=== PATIENT | male | born 1950 | race Caucasian/White ===

== ENCOUNTER 2016-11-04 21:49 | Observation (INO) | payer MEDICARE ==
[~2016-11-04] VITALS: Ht 175.3 cm; Wt 92.6 kg
[~2016-11-04 21:49] MED LIST: ALBU8.5H2 INH; ALBUTEROL; ALPR1TAB7 PO; ALPR1TAB72 PO; ASP81CT PO; ASP81TEC PO; ASPI-999 PO; CLOP75TA PO; CLOP75TA28 PO; CLOP75TA69 PO; CYCL10TA9 PO; DOXY100C2 PO; ESCI10TA48 PO; ESCI10TA55 PO; ESCT10T PO; ESOM10SU; FAMO40TA39 PO; FAMO40TA6; FAMO40TA6 PO; FRSM20T; FRSM40T PO; FURO20TA4 PO; FURO40TA4 PO; HYDR-1231 PO; HYDR-34 PO; HYDR1TAB PO; ISM30TCR PO; ISOS30TA3 PO; ISOSORBIDE; LEXAPRO; LISI20TA; LISINOPRIL; ME-C1TAB; METO25TA2 PO; MULT-974 PO; MULT1CAP27 PO; NF-METANX; NITR0.4T SL; NTR.4SL PO; NTR.4SL SL; OMEG-12 PO; PLAVIX; PROP1TAB2; PROP1TAB77; RANO10003 PO; RANO500T2 PO; SIMV10TA3 PO; SIMV20TA3 PO; SIMV40TA4 PO; TIOT18CA; TIOT18CA INH; XANAX
[2016-11-04 22:03] LABS: BASOPHILS # (AUTO) 0.1 10^3/uL (0.0-0.1); BASOPHILS % (AUTO) 1 % (0-10); EOSINOPHILS # (AUTO) 0.2 10^3/uL (0.0-0.3); EOSINOPHILS % (AUTO) 3 % (0-10); LYMPHOCYTES # (AUTO) 3.4 X 10^3 (1.0-4.0); LYMPHOCYTES % (AUTO) 38 % (12-44); MEAN CORPUSCULAR HEMOGLOBIN 33 PG (25-34); MEAN CORPUSCULAR HGB CONC 35 G/DL (32-36); MEAN CORPUSCULAR VOLUME 95 FL (80-99); MEAN PLATELET VOLUME 8.9 FL (7.4-10.4); MONOCYTES # (AUTO) 0.8 X 10^3 (0.0-1.0); MONOCYTES % (AUTO) 9 % (0-12); NEUTROPHILS # (AUTO) 4.4 X 10^3 (1.8-7.8); NEUTROPHILS % (AUTO) 49 % (42-75); PLATELET COUNT 206 10^3/uL (130-400); RED BLOOD COUNT 4.46 10^6/uL (4.35-5.85); RED CELL DISTRIBUTION WIDTH 13.4 % (10.0-14.5); WHITE BLOOD COUNT 8.9 10^3/uL (4.3-11.0)
[2016-11-04 22:10] LABS: INR 1.1 (0.8-1.4); PROTHROMBIN TIME PATIENT 14.4 SEC (12.2-14.7)
[2016-11-04 22:21] LABS: POTASSIUM 4.3 MMOL/L (3.6-5.0); SODIUM 137 MMOL/L (135-145)
[2016-11-04 22:22] LABS: ALANINE AMINOTRANSFERASE 14 U/L (0-55); AMYLASE 65 U/L (25-125); ANION GAP 9 MMOL/L (5-14); ASPARTATE AMINO TRANSFERASE 17 U/L (5-34); BILIRUBIN,TOTAL 0.3 MG/DL (0.1-1.0); BLOOD UREA NITROGEN 14 MG/DL (7-18); BUN/CREATININE RATIO 10; CARBON DIOXIDE 24 MMOL/L (21-32); CHLORIDE 104 MMOL/L (98-107); CREATINE KINASE 78 U/L (30-200); CREATININE SERUM 1.44 MG/DL (0.60-1.30); GFR ESTIMATED 50; GLUCOSE 103 MG/DL (70-105); LIPASE 25 U/L (8-78); MAGNESIUM 2.3 MG/DL (1.8-2.4); TOTAL PROTEIN 6.9 GM/DL (6.4-8.2)
[2016-11-04 22:28] LABS: TROPONIN I < 0.30 NG/ML (<0.30)
--- NOTE | 2016-11-04 22:36 | ED Chest Pain ---
General Chief Complaint: Chest Pain Stated Complaint: CHEST PAIN Nursing Triage Note: PT BROUGHT TO ED BY [facility]. PT COMPLAINS OF CHEST PAIN AT APPROX. 2030 TODAY. PT STATES HE WAS MAKING TEA IN HIS KITCHEN AND LAST THING HE KNOWS HE WAS ON THE FLOOR. PT HAD 3 NITRO AND 324 ASA AT HOME. PT STATES THE PAIN HAS GONE AWAY SINCE MEDICATIONS WERE TAKING. PT STATES HE FELT DIZZY AT APPROX. 2030 WHEN THE CHEST PAIN STARTED. NO N/V COMPLAINTS. Nursing Sepsis Screen: No Definite Risk Source: patient, EMS History of Present Illness Time seen by provider: 21:46 Initial Comments PT ARRIVES VIA EMS FROM HOME PT STATES HE WAS IN THE KITCHEN AND PASSED OUT/WOKE UP ON THE FLOOR, THEN HAD SEVERE CHEST PAIN RATING 10/10 WHEN HE WOKE UP PT CALLED HIS DAUGHTER, THEN TOOK NTG X 2 AND 325 MG ASPIRIN BEFORE EMS ARRIVED AT SCENE. EMS GAVE HIM NTG X 1 AND 50 MCG FENTANYL PRIOR TO ARRIVAL AND PAIN IS GONE NOW PT WAS DIZZY WHEN HE TRIED TO STAND FOR EMS, AND THINKS HE MIGHT HAVE BEEN DIZZY BEFORE HE PASSED OUT PT DOES NOT RECALL IF HE WAS HAVING ANY CHEST PAIN OR PALPITATIONS OR OTHER SYMPTOMS BEFORE HE PASSED OUT DENIES ANY PAIN OR INJURIES FROM PASSING OUT NO SWEATS NO NAUSEA/VOMITING NO PALPITATIONS NO INCONTINENCE NO SWELLING IN LEGS / FEET OR PAIN IN CALVES. NO RECENT TRAVEL, PROLONGED SITTING, ETC WALKED TODAY WITHOUT PROBLEMS--UNKNOWN DISTANCE. PT HAS HISTORY OF CAD, AND HAS HAD 2 MT'S AND CABG AND MULTIPLE STENTS. LAST CARDIAC CATH 09/2015 AFTER NON-STEMI, BY DR. LOVETT HAS NOT PASSED OUT WITH CHEST PAIN IN THE PAST PCP: DR. MÉNDEZ WINDOW CUTTER: DR. LOVETT Allergies and Home Medications Allergies Coded Allergies: morphine (Unverified Adverse Reaction, Unknown, "MAKES ME CRAZY", 09/04/13) Home Medications Aspirin 81 Mg Chew, 81 MG PO Q48H, (Reported) Aspirin 81 Mg Tab.chew, 81 MG PO Q48H, #100 Ref 4 Prescribed by: GAIL LOVETT on 09/27/15 0948 Clopidogrel Bisulfate 75 Mg Tablet, 75 MG PO DAILY, (Reported) Escitalopram Oxalate 10 Mg Tablet, 10 MG PO HS, (Reported) Famotidine 40 Mg Tablet, 40 MG PO, (Reported) Furosemide 40 Mg Tablet, 40 MG PO, (Reported) Isosorbide Mononitrate 30 Mg Tab.er.24h, 30 MG PO, (Reported) Meloxicam 15 Mg Tablet, 15 MG PO, (Reported) Metoprolol Tartrate 25 Mg Tablet, 25 MG PO BID, (Reported) Nitroglycerin 0.4 Mg Tab, SL UD PRN for CHEST PAIN, (Reported) 1 TABLET EVERY 5 MINUTES X 3 DOSES NEEDED FOR CHEST PAIN Nitroglycerin 0.4 Mg Tab.subl, 0.4 MG SL PRN PRN for CHEST PAIN, #30 Ref 4 Prescribed by: GAIL LOVETT on 09/27/15 0948 Ranolazine 1,000 Mg Tab.er.12h, 1,000 MG PO BID, (Reported) Ranolazine 1,000 Mg Tab.er.12h, 1,000 MG PO, (Reported) Simvastatin 20 Mg Tablet, 20 MG PO HS, (Reported) Review of Systems Constitutional: see HPI, No diaphoresis, dizziness EENTM: No Symptoms Reported Respiratory: No Symptoms Reported Cardiovascular: See HPI, Chest Pain, Denies Edema, Lightheadedness, Denies Palpitations, Syncope Gastrointestinal: No Symptoms Reported Genitourinary: No Symptoms Reported Musculoskeletal: no symptoms reported Skin: no symptoms reported Psychiatric/Neurological: See HPI (SYNCOPE), Denies Headache, Denies Numbness, Denies Paresthesia Endocrine: No Symptoms Reported Hematologic/Lymphatic: No Symptoms Reported Past Gajjypn-Ptthed-Lukcvt Hx Patient Social History Alcohol Use: Past History ("NONE FOR YEARS" PER PT ON 11/04/16) Recreational Drug Use: Yes (" A TEENAGER"--DOES NOT STATE WHAT KIND, PER PT ON 11/04/16) Smoking Status: Current Everyday Smoker (1-2 PPD) Type Used: Cigarettes 2nd Hand Smoke Exposure: Yes Recent Foreign Travel: No Contact w/Someone Who Travel: No Recent Infectious Disease Expo: No Recent Hopitalizations: No Physical Abuse: No Sexual Abuse: No Immunizations Up To Date Tetanus Booster (TDap): Less than 5yrs PED Vaccines UTD: No Date of Pneumonia Vaccine: Oct 31, 2008 Date of Influenza Vaccine: Nov 23, 2011 Seasonal Allergies Seasonal Allergies: No Surgeries History of Surgeries: Yes (CARDIAC CATHS AND MULTIPLE STENTS--LAST CATH 2015 WITH NO INTERVENTION AT THAT TIME; ) Surgeries: CABG, Coronary Stent, Orthopedic Respiratory History of Respiratory Disorde: Yes Respiratory Disorders: COPD Currently Using CPAP: No Currently Using BIPAP: No Cardiovascular History of Cardiac Disorders: Yes (CATHS, BYPASS, STENTS, BALLOONS, LAST MT-- NON-STEMI 09/2015) Cardiac Disorders: Coronary Artery Disease, Heart Attack, High Cholesterol, Hypertension Neurological History of Neurological Disord: Yes (hx of brain bleed) Neurological Disorders: Traumatic Brain Injury Reproductive System Hx Reproductive Disorders: No Sexually Transmitted Disease: No HIV/AIDS: No Genitourinary History of Genitourinary Disor: Yes Genitourinary Disorders: Benign Prostatic Hyperpl Gastrointestinal History of Gastrointestinal Di: Yes Gastrointestinal Disorders: Gastroesophageal Reflux Musculoskeletal History of Musculoskeletal Dis: Yes Musculoskeletal Disorders: Chronic Back Pain Endocrine History of Endocrine Disorders: Yes ("DIET CONROLLED" ) Endocrine Disorders: Diabetes, Non-Insulin dep Cancer History of Cancer: No Psychosocial History of Psychiatric Problem: Yes Behavioral Health Disorders: Anxiety, Depression Suicide Risk Score: 0 Integumentary History of Skin or Integumenta: No Blood Transfusions History of Blood Disorders: No Adverse Reaction to a Blood Tr: No Family Medical History Significant Family History: No Pertinent Family Hx Family Medial History: Completed stroke 19 FATHER Diabetes mellitus 19 FATHER 19 MOTHER Myocardial infarction 19 MOTHER Physical Exam Vital Signs Vital Sign - Last 12Hours Capillary Refill : Less Than 3 Seconds General Appearance: No Apparent Distress, WD/WN, Other (REEKS OF CIGARETTE SMOKE) HEENT: PERRL/EOMI, Other (EDENTULOUS. NO EXTERNAL EVIDENCE OF TRAUMA TO HEAD) Neck: Full Range of Motion, Normal Inspection, Non Tender, Supple Respiratory: Chest Non Tender, Normal Breath Sounds, No Accessory Muscle Use, No Respiratory Distress Cardiovascular: Regular Rate, Rhythm, No Edema, No JVD, No Murmur, Normal Peripheral Pulses (+1/4 BILATERALLY) Gastrointestinal: Normal Bowel Sounds, No Organomegaly, No Pulsatile Mass, Non Tender, Soft Extremity: Normal Capillary Refill, Normal Inspection, Normal Range of Motion, Non Tender, No Calf Tenderness, No Pedal Edema Neurologic/Psychiatric: Alert, Oriented x3, No Motor/Sensory Deficits, Normal Mood/Affect, apparel embroidery digitizer II-XII Norm as Tested Skin: Normal Color, Warm/Dry, Tattoos/Piercings (TATTOOS), Other (NO EXTERNAL EVIDENCE OF TRAUMA ANYWHERE) Progress/Results/Core Measures Results/Orders Lab Results Laboratory Tests Test 11/04/16 21:51 Range/Units White Blood Count 8.9 4.3-11.0 10^3/uL Red Blood Count 4.46 4.35-5.85 10^6/uL Hemoglobin 14.7 13.3-17.7 G/DL Hematocrit 42 40-54 % Mean Corpuscular Volume 95 80-99 FL Mean Corpuscular Hemoglobin 33 25-34 PG Mean Corpuscular Hemoglobin Concent 35 32-36 G/DL Red Cell Distribution Width 13.4 10.0-14.5 % Platelet Count 206 130-400 10^3/uL Mean Platelet Volume 8.9 7.4-10.4 FL Neutrophils (%) (Auto) 49 42-75 % Lymphocytes (%) (Auto) 38 12-44 % Monocytes (%) (Auto) 9 0-12 % Eosinophils (%) (Auto) 3 0-10 % Basophils (%) (Auto) 1 0-10 % Neutrophils # (Auto) 4.4 1.8-7.8 X 10^3 Lymphocytes # (Auto) 3.4 1.0-4.0 X 10^3 Monocytes # (Auto) 0.8 0.0-1.0 X 10^3 Eosinophils # (Auto) 0.2 0.0-0.3 10^3/uL Basophils # (Auto) 0.1 0.0-0.1 10^3/uL Prothrombin Time 14.4 12.2-14.7 SEC INR Comment 1.1 0.8-1.4 Activated Partial Thromboplast Time 27 24-35 SEC Sodium Level 137 135-145 MMOL/L Potassium Level 4.3 3.6-5.0 MMOL/L Chloride Level 104 98-107 MMOL/L Carbon Dioxide Level 24 21-32 MMOL/L Anion Gap 9 5-14 MMOL/L Blood Urea Nitrogen 14 7-18 MG/DL Creatinine 1.44 H 0.60-1.30 MG/DL Estimat Glomerular Filtration Rate 50 BUN/Creatinine Ratio 10 Glucose Level 103 70-105 MG/DL Calcium Level 9.0 8.5-10.1 MG/DL Magnesium Level 2.3 1.8-2.4 MG/DL Total Bilirubin 0.3 0.1-1.0 MG/DL Aspartate Amino Transf (AST/SGOT) 17 5-34 U/L Alanine Aminotransferase (ALT/SGPT) 14 0-55 U/L Alkaline Phosphatase 83 40-136 U/L Total Creatine Kinase 78 30-200 U/L Creatine Kinase MB 1.1 <6.6 NG/ML Troponin I < 0.30 <0.30 NG/ML B-Type Natriuretic Peptide 27.4 <100.0 PG/ML Total Protein 6.9 6.4-8.2 GM/DL Albumin 4.0 3.2-4.5 GM/DL Amylase Level 65 25-125 U/L Lipase 25 8-78 U/L My Orders Orders - KRAEN SOLIS DO Amylase (11/04/16 21:58) Cbc With Automated Diff (11/04/16 21:58) Comprehensive Metabolic Panel (11/04/16 21:58) Creatine Kinase (11/04/16 21:58) Creatine Kinase Mb (11/04/16 21:58) Lipase (11/04/16 21:58) Partial Thromboplastin Time (11/04/16 21:58) Protime With Inr (11/04/16 21:58) Troponin I (11/04/16 21:58) Chest 1 View, Ap/Pa Only (11/04/16 21:58) O2 (11/04/16 21:58) Ekg Tracing (11/04/16 21:58) BNP (11/04/16 21:58) Monitor-Rhythm Ecg Trace Only (11/04/16 21:58) Magnesium (11/04/16 21:58) Vital Signs/I&O Vital Sign - Last 12Hours 11/04/16 11/04/16 21:49 21:49 Temp 97.9 Pulse 81 Resp 14 B/P (MAP) 145/81 Pulse Ox 96 O2 Delivery Room Air Room Air Blood Pressure Mean: 102 Progress Note : Progress Note UNEVENTFUL ER STAY NO CHEST PAIN OR ANY OTHER SYMPTOMS DURING ER STAY PT RESTED QUIETLY FOR ENTIRE ER STAY ECG Initial ECG Impression Time: 21:49 Initial ECG Rate: 82 Initial ECG Rhythm: Normal Sinus Initial ECG Comparisson: Unchanged Diagnostic Imaging Comments CXR--NO ACUTE PROCESS, PENDING RADIOLOGIST REVIEW CT HEAD--NO ACUTE PROCESS, PER [facility] VIA FAX @ [phone] Reviewed: Reviewed by Me Departure Communication (Admissions) Progress Notes 2204--SPOKE WITH DR. JACK, WINDOW CUTTER MEAT GRINDER FOR CONSULT [id number]--SPOKE WITH DR. SÁNCHEZ, HOSPITALIST MEAT GRINDER, ACCEPTS PT FOR ADMIT Impression Impression: Primary Impression: SYNCOPAL EPISODE WITH CHEST PAIN Additional Impressions: HX OF CAD NIDDM HTN (hypertension) Smoker COPD (chronic obstructive pulmonary disease) Disposition: ADMITTED INPATIENT Condition: Improved Admissions Decision to Admit Reason: Admit from ER (General) Decision to Admit/Date: Nov 04, 2016 Time/Decision to Admit Time: 22:05 Departure-Patient Inst. Referrals: AMADEO MÉNDEZ MD (PCP/Family) Primary Care Physician KAREN SOLIS DO Nov 04, 2016 22:36
[2016-11-04] MEDS ORDERED: FAMO40TA6 PO (22:49)
[2016-11-04] MEDS ORDERED: FURO40TA4 PO (22:50)
[2016-11-04] MEDS ORDERED: ISOS30TA3 PO (22:51)
[2016-11-04] MEDS ORDERED: MELO15TA39 PO (22:51)
[2016-11-04] MEDS ORDERED: METO-333 PO (22:52)
[2016-11-04] MEDS ORDERED: RANO10003 PO (22:53)
[2016-11-05] VITALS (13 sets, daily range): BP systolic 107–142; BP diastolic 71–99
[2016-11-05] MEDS ORDERED: NITROGLYCERIN 0.4 MG SL TABS BTL 25'S SL PRN ×2 (01:15→12:45)
[2016-11-05] MEDS ORDERED: fentaNYL INJECTION 100 MCG/2 ML AMP IV PRN (01:15)
[2016-11-05] MEDS: NS IV 1000 ML 1,000 ML IV SCH ×2 (01:20→19:42)
[2016-11-05] MEDS ORDERED: NICOTINE 21 MG (NICODERM) PATCH ONE (01:49)
[2016-11-05] MEDS: NICOTINE 21 MG (NICODERM) PATCH TD SCH ×2 (02:14→09:29)
[2016-11-05 04:23] LABS: BASOPHILS # (AUTO) 0.1 10^3/uL (0.0-0.1); BASOPHILS % (AUTO) 1 % (0-10); EOSINOPHILS # (AUTO) 0.3 10^3/uL (0.0-0.3); EOSINOPHILS % (AUTO) 3 % (0-10); LYMPHOCYTES # (AUTO) 3.2 X 10^3 (1.0-4.0); LYMPHOCYTES % (AUTO) 43 % (12-44); MEAN CORPUSCULAR HEMOGLOBIN 33 PG (25-34); MEAN CORPUSCULAR HGB CONC 35 G/DL (32-36); MEAN CORPUSCULAR VOLUME 95 FL (80-99); MEAN PLATELET VOLUME 9.3 FL (7.4-10.4); MONOCYTES # (AUTO) 0.8 X 10^3 (0.0-1.0); MONOCYTES % (AUTO) 11 % (0-12); NEUTROPHILS # (AUTO) 3.1 X 10^3 (1.8-7.8); NEUTROPHILS % (AUTO) 42 % (42-75); PLATELET COUNT 185 10^3/uL (130-400); RED BLOOD COUNT 4.39 10^6/uL (4.35-5.85); RED CELL DISTRIBUTION WIDTH 13.5 % (10.0-14.5); WHITE BLOOD COUNT 7.5 10^3/uL (4.3-11.0)
[2016-11-05 04:45] LABS: ALANINE AMINOTRANSFERASE 13 U/L (0-55); ALBUMIN 3.7 GM/DL (3.2-4.5); ANION GAP 9 MMOL/L (5-14); ASPARTATE AMINO TRANSFERASE 17 U/L (5-34); BILIRUBIN,TOTAL 0.4 MG/DL (0.1-1.0); BLOOD UREA NITROGEN 14 MG/DL (7-18); BUN/CREATININE RATIO 12; CALCIUM 8.8 MG/DL (8.5-10.1); CARBON DIOXIDE 23 MMOL/L (21-32); CHLORIDE 106 MMOL/L (98-107); CREATININE SERUM 1.19 MG/DL (0.60-1.30); GFR ESTIMATED > 60; GLUCOSE 92 MG/DL (70-105); POTASSIUM 4.2 MMOL/L (3.6-5.0); SODIUM 138 MMOL/L (135-145); TOTAL PROTEIN 6.5 GM/DL (6.4-8.2)
[2016-11-05 04:57] LABS: MYOGLOBIN SERUM 45.8 NG/ML (10.0-92.0)
[2016-11-05] MEDS: inSUlin (REGULAR) HUMAN 1 UNIT/0.01 ML (CHARGE PER UNIT) SC SCH ×2 (06:24→13:17)
[2016-11-05 06:39] LABS: BILIRUBIN,URINE NEGATIVE (NEGATIVE); KETONES,URINE NEGATIVE (NEGATIVE); LEUKOCYTE ESTERASE ,URINE NEGATIVE (NEGATIVE); NITRITE,URINE NEGATIVE (NEGATIVE); PH,URINE 6 (5-9); PROTEIN,URINE NEGATIVE (NEGATIVE); UROBILINOGEN,URINE NORMAL (NORMAL)
[2016-11-05 06:47] LABS: SQUAMOUS EPITHELIAL CELL,UR RARE /HPF
--- NOTE | 2016-11-05 07:42 | Diagnostic Imaging Report ---
INDICATION: Dizziness and syncope. Noncontrast brain CT is performed. FINDINGS: There were no extra-axial fluid collections. No intracranial hemorrhage. No intracranial mass or mass effect. No midline shift. The ventricles are normal in size and position. There were no focal parenchymal abnormalities in the brain. IMPRESSION: Negative noncontrast brain CT. Dictated by: Dictated on workstation # [id number]
--- NOTE | 2016-11-05 07:48 | Diagnostic Imaging Report ---
INDICATION: Chest pain. Frontal chest obtained at 10:08 p.m. and compared to 09/26/15. FINDINGS: There is poststernotomy change with cardiomegaly. There is no focal infiltrate or pneumothorax or pleural fluid. There is an old right clavicle fracture. IMPRESSION: Cardiomegaly and poststernotomy change. No focal infiltrate or pneumothorax or pleural fluid. Dictated by: Dictated on workstation # [id number]
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
[2016-11-05] MEDS ORDERED: CLOPIDOGREL 75 MG (PLAVIX) TABLET PO ONE (08:30)
[2016-11-05] MEDS ORDERED: ATOR40TA70 PO (08:57)
[2016-11-05] MEDS ORDERED: NITR0.4T39 SL (08:57)
[2016-11-05] MEDS ORDERED: ALPR1TAB7 PO (08:57)
[2016-11-05] MEDS ORDERED: TIOT18CA2 INH (08:57)
[2016-11-05] MEDS ORDERED: ASPI-999 PO (08:57)
[2016-11-05] MEDS ORDERED: RT-ALBUINH INH (08:57)
[2016-11-05] MEDS ORDERED: RANOLAZINE ER 500 MG TAB (RANEXA) PO SCH ×2 (09:00→21:00)
[2016-11-05] MEDS ORDERED: ASPIRIN E.C. 325 MG (ECOTRIN) TABLET PO SCH (09:00)
[2016-11-05] MEDS ORDERED: ASPIRIN 81 MG CHEW (CHILDREN'S ASA) PO SCH (09:00)
[2016-11-05] MEDS ORDERED: CLOPIDOGREL 75 MG (PLAVIX) TABLET PO SCH (09:00)
[2016-11-05] MEDS ORDERED: NICOTINE PATCH REMOVAL TP SCH (09:00)
--- NOTE | 2016-11-05 12:16 | Short Stay Summary-Hospitalist ---
HPI History of Present Illness: HPI/Chief Complaint CC: Chest pain with syncope HPI: This is a 65 [address] Paul who presented with chest pain with syncope Dr. 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 Moore today Pt confirms PCP as Dr. Paul and Conservation Planner as Dr. Sanches Pt denies passing out and chest pain since admission Physical exam stable. 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 Pt joked that he needs something to eat, drink, and smoke. Scribed by Sarahi Sam under the direct supervision of Dr. Sánchez. Source: patient Exam Limitations: no limitations Date Seen 11/05/16 Time Seen by Provider: 10:30 Attending Physician Consuelo Sánchez DO PCP Estevan Paul MD Referring Physician Date of Admission Nov 04, 2016 at 22:05 Home Medications & Allergies Home Medications Reviewed patient Home Medication Reconciliation Form Allergies Allergies Coded Allergies morphine (Unverified Adverse Reaction, Unknown, "MAKES ME CRAZY", 09/04/13) Past Hbpcscc-Ymauvr-Mebusl Hx Patient Social History Employed/Student: retired Alcohol Use: Past History Recreational Drug Use: Yes (" A TEENAGER"--DOES NOT STATE WHAT KIND, PER PT ON 11/04/16) Smoking Status: Current Everyday Smoker Type Used: Cigarettes 2nd Hand Smoke Exposure: Yes Physical Abuse Screen: No Sexual Abuse: No Recent Foreign Travel: No Contact w/other who traveled: No Recent Hopitalizations: No Recent Infectious Disease Expo: No Immunizations Up To Date Tetanus Booster (TDap): Less than 5yrs Pediatric: Yes Date of Pneumonia Vaccine: Oct 31, 2008 Date of Influenza Vaccine: Nov 23, 2011 Seasonal Allergies Seasonal Allergies: No Surgeries Yes (CARDIAC SX, PINS IN R. WRIST, KNEE SURGERGY) CABG, Coronary Stent, Orthopedic Respiratory Yes COPD Currently Using CPAP: No Currently Using BIPAP: No Cardiovascular Yes (CATHS, BYPASS, STENTS, BALLOONS, LAST [place]--NON-STEMI 09/2015) Coronary Artery Disease, Heart Attack, High Cholesterol, Hypertension Neurological Yes (hx of brain bleed) Traumatic Brain Injury Reproductive System Hx Reproductive Disorders: No Sexually Transmitted Disease: No HIV/AIDS: No Genitourinary Yes Benign Prostatic Hyperpl Gastrointestinal Yes Gastroesophageal Reflux Musculoskeletal Yes Chronic Back Pain Endocrine History of Endocrine Disorders: Yes ("DIET CONROLLED" ) Endocrine Disorders: Diabetes, Non-Insulin dep HEENT History of HEENT Disorders: No Hearing Impairment: Denies Cancer No Psychosocial History of Psychiatric Problem: Yes Behavioral Health Disorders: Anxiety, Depression Integumentary History of Skin or Integumenta: No Blood Transfusions History of Blood Disorders: No Adverse Reaction to a Blood Tr: No Family Medical History Significant Family History: No Pertinent Family Hx Family Hx: Completed stroke 19 FATHER Diabetes mellitus 19 FATHER 19 MOTHER Myocardial infarction 19 MOTHER Review of Systems Constitutional: see HPI EENTM: no symptoms reported Respiratory: no symptoms reported Cardiovascular: chest pain Gastrointestinal: no symptoms reported Genitourinary: no symptoms reported Musculoskeletal: no symptoms reported Skin: no symptoms reported Psychiatric/Neurological: Other (syncope) Physical Exam Physical Exam Vital Signs Vital Sign - Last 12Hours 11/05/16 02:15 O2 Flow Rate 2.00 Capillary Refill : Less Than 3 Seconds General Appearance: No Apparent Distress, WD/WN, Chronically ill Eyes: Bilateral Eye Normal Inspection, Bilateral Eye PERRL HEENT: PERRL/EOMI, Normal ENT Inspection, Pharynx Normal Neck: Full Range of Motion, Normal Inspection, Non Tender, Supple, Carotid Bruit Respiratory: Chest Non Tender, Lungs Clear, Normal Breath Sounds, No Accessory Muscle Use, No Respiratory Distress Cardiovascular: Regular Rate, Rhythm, No Edema, No Gallop, No JVD, No Murmur, Normal Peripheral Pulses Gastrointestinal: Normal Bowel Sounds, No Organomegaly, No Pulsatile Mass, Non Tender, Soft Back: Normal Inspection, No CVA Tenderness, No Vertebral Tenderness Extremity: Normal Capillary Refill, Normal Inspection, Normal Range of Motion, Non Tender, No Calf Tenderness, No Pedal Edema Neurologic/Psychiatric: Alert, Oriented x3, No Motor/Sensory Deficits, Normal Mood/Affect Skin: Normal Color, Warm/Dry Lymphatic: No Adenopathy Results Results/Procedures Lab Laboratory Tests 11/04/16 21:51 11/05/16 03:48 Short Stay Diagnosis Discharge Diagnosis-Short Stay Admission Diagnosis Assessment: Chest pain of uncertain source accompanied with syncope Smoker CAD COPD HLP Anxiety Final Discharge Diagnosis Assessment: Chest pain of uncertain source Smoker CAD COPD HLP Anxiety Conclusion Plan Plan: Stress test Monitor pt in meantime DC per Cardiology Clinical Quality Measures AMI/AHF: ASA po Prior to arrival: Yes DVT/VTE Risk/Contraindication: Risk Factor Score Per Nursin RFS Level Per Nursing on Admit: 4+=Very High CONSUELO SÁNCHEZ DO Nov 05, 2016 12:16
[2016-11-05] MEDS ORDERED: ALPRAZolam 1 MG (XANAX) TAB PO PRN (12:45)
[2016-11-05] MEDS ORDERED: FUROSEMIDE 40 MG (LASIX) TAB PO PRN (12:45)
[2016-11-05] MEDS ORDERED: RT-ALBUTEROL SULF 2.5 MG/3 ML PRE-MIX VIAL IH PRN (13:00)
[2016-11-05] MEDS ORDERED: REGADENOSON 0.4 MG/5 ML SYR (LEXISCAN) IV ONE ×2 (13:23→13:45)
[2016-11-05] MEDS ORDERED: ISOSORBIDE MONONITRATE 30 MG (IMDUR) TAB PO SCH (21:00)
[2016-11-05] MEDS ORDERED: ATORVASTATIN 40 MG (LIPITOR) TABLET PO SCH ×2 (21:00)
[2016-11-05] MEDS ORDERED: meTOprolol TARTRATE 25 MG (LOPRESSOR) TABLET PO SCH (21:00)
[2016-11-06] MEDS ORDERED: UMECLIDINIUM BROMIDE (INCRUSE ELLIPTA) 7'S IH SCH (08:00)
[2016-11-06] MEDS ORDERED: FAMOTIDINE 20 MG (PEPCID) TABLET PO SCH (09:00)
[2016-11-06] MEDS ORDERED: ASPIRIN 81 MG CHEW (CHILDREN'S ASA) PO SCH (09:00)
[2016-11-06] MEDS ORDERED: MELOXICAM 7.5 MG (MOBIC) TABLET PO SCH (09:00)
[2016-11-06] MEDS ORDERED: CLOPIDOGREL 75 MG (PLAVIX) TABLET PO SCH (09:00)
--- NOTE | 2016-11-06 22:08 | STRESS TEST ---
DATE OF SERVICE: 11/05/2016 RESTING AND POST REGADENOSON TECHNETIUM-99M TETROFOSMIN SPECT CT IMAGING ORDERING PHYSICIAN: Dr. Moore. PRIMARY CARE PHYSICIAN: Dr. Puri. OTHER PHYSICIAN: Dr. Mann, Dr. Paul. CLINICAL DIAGNOSES: Syncope, coronary artery disease. Baseline images were carried out after injection of 10.76 mCi of technetium-99M tetrofosmin. This was followed by 0.4 mg regadenoson and 31.9 mCi of technetium-99M tetrofosmin for stress imaging. The electrocardiogram showed sinus rhythm at baseline. It did not change significantly with the regadenoson infusion. Overall, he tolerated the procedure fairly well. Review of images at rest and following stress does not indicate any distinct perfusion defects consistent with significant myocardial ischemia or infarction. Gated images show normal global left ventricular systolic function with normal regional wall motion. Left ventricular ejection fraction is calculated to be 49%, but appears to be subjectively higher than that. There is no evidence of transient ischemic dilatation. CONCLUSION: 1. No evidence of significant myocardial ischemia or infarction on this study. 2. Normal regional wall motion. 3. Normal global left ventricular systolic function. Left ventricular ejection fraction is calculated to be 49% but, subjectively, it appears to be higher than that. Job ID: [id number] DocumentID: [id number] Dictated Date: 11/05/2016 16:35:18 Mobile Home Lot Utility Worker Date: 11/05/2016 21:19:45 Dictated By: SURESH MOORE MD, MA, FACP, FACC, MTDD
== END 2016-11-05 17:30 | disposition left against medical advice (07) ==
LOC: EDUNIT# 21:49 → ER 21:50 → ICU 22:05
PROVIDERS: ADMIT Internal Medicine; ATTEND Internal Medicine
DX: R07.9 Chest pain, unspecified (principal); R55 Syncope and collapse; I25.10 Atherosclerotic heart disease of native coronary artery without angina pectoris; E11.9 Type 2 diabetes mellitus without complications; I10 Essential (primary) hypertension; J44.9 Chronic obstructive pulmonary disease, unspecified; E78.5 Hyperlipidemia, unspecified; F41.9 Anxiety disorder, unspecified; N40.0 Benign prostatic hyperplasia without lower urinary tract symptoms; F17.210 Nicotine dependence, cigarettes, uncomplicated; Z79.82 Long term (current) use of aspirin; Z79.899 Other long term (current) drug therapy; Z95.1 Presence of aortocoronary bypass graft; Z95.5 Presence of coronary angioplasty implant and graft
CPT/HCPCS: 36415; 70450; 71010; 78452; 80053; 81000; 82150; 82550; 82553; 82962; 83690; 83735; 83874; 83880; 84484; 85025; 85610; 85730; 93005; 93017; 93041; 93306; 96365

== ENCOUNTER → 2022-01-02 | Outpatient (CLI) | payer MEDICARE ==
[~2022-01-02] MED LIST changes: +ALBU8.5H6 INH; +ATOR40TA70 PO; +CATHETER FLUSH 10 ML SYR IV PRN; +ESCI-2 PO; -ESCI10TA55 PO; +HOLD METFORMIN - RECEIVED CONTRAST 20 ML VIAL IV SCH; +IOHEXOL 350 MG/ML 100 ML (OMNIPAQUE 350) VIAL IV ONE; +ISOS30TA82 PO; +MELO15TA39 PO; +METO-333 PO; +NITR0.4T39 SL; +NS 100 ML (IVPB) BAG IV ONE; +SIMV20TA26 PO; -SIMV20TA3 PO; +TIOT18CA2 INH
--- NOTE | 2022-01-02 11:50 | Diagnostic Imaging Report ---
Indication: 71-year-old male with carotid bifurcation disease Comparisons: CT head 11/04/2016 FINDINGS: There is a normal arch origin of great vessels. Both common carotid arteries are widely patent. Carotid bifurcations show some minimal mixed plaque but no evidence of hemodynamically significant stenosis. The cervical, high cervical and petrous segments are widely patent. There is bilateral carotid siphon disease with calcific atherosclerosis. No evidence of hemodynamically significant stenosis seen. The vertebral arteries are codominant and are widely patent to the skull base. The left V3 and V4 segment are dominant compared to the right. Both PICA, basilar artery, AICA and the visualized SCA are unremarkable. Lung apices are clear. Superior mediastinum is unremarkable. Parapharyngeal and paraspinous soft tissues are also unremarkable. A few shotty benign-appearing cervical nodes. There is metallic artifacts seen near the left parotid gland most likely associated with previous surgery. IMPRESSION: 1. There is bilateral carotid bifurcation disease with mixed plaque but no evidence of hemodynamically significant stenosis. 2. There is bilateral carotid siphon disease with calcific atherosclerosis with some mild narrowing but this is not felt to be hemodynamically significant. 3. The vertebral arteries are codominant at the skull base. No areas of hemodynamically significant stenosis seen. The visualized intracranial circulation is unremarkable. Additional nonemergent findings as described. Dictated on workstation # [id number]
== END ==
LOC: CARD 09:06
PROVIDERS: ATTEND Internal Medicine Cardiovascular Disease
DX: I65.23 Occlusion and stenosis of bilateral carotid arteries (principal); I10 Essential (primary) hypertension
CPT/HCPCS: 70498; C8929; 93306

== ENCOUNTER → 2022-01-28 | Outpatient (CLI) | payer MEDICARE ==
[~2022-01-28] VITALS: Ht 175 cm; Wt 94.0 kg
[~2022-01-28] MED LIST changes: -CATHETER FLUSH 10 ML SYR IV PRN; +CATHETER FLUSH 10 ML SYR IVP PRN; +CLOP-31 PO; -CLOP75TA69 PO; -HOLD METFORMIN - RECEIVED CONTRAST 20 ML VIAL IV SCH; -IOHEXOL 350 MG/ML 100 ML (OMNIPAQUE 350) VIAL IV ONE; -NS 100 ML (IVPB) BAG IV ONE; +REGADENOSON 0.4 MG/5 ML SYR (LEXISCAN) IV ONE
[2022-01-28 09:46] VITALS: BP 139/72
[2022-01-28 09:51] VITALS: BP 129/79
[2022-01-28 09:53] VITALS: BP 125/79
--- NOTE | 2022-01-28 14:14 | Cardiology Stress Test Report ---
Stress Test Report Date of Procedure/Referring: Date of Procedure: Jan 28, 2022 PCP Estevan Paul MD Admitting Physician Admitting Physician: Attending Physician: Gail Sanches MD Indications: CAD Baseline Heart Rate: 97 Baseline Blood Pressure: Blood Pressure Systolic: 125 Blood Pressure Diastolic: 79 Baseline Vitals Vital Signs Date Time Temp Pulse Resp B/P (MAP) Pulse Ox O2 Delivery O2 Flow Rate FiO2 01/28/22 09:46 94 17 139/72 (94) 96 Room Air Baseline EKG: Baseline EKG: NSR Summary After explaining the procedure to the patient, he signed a consent and then brought to the stress nuclear laboratory. Patient received 0.4 mg Lexiscan for stress test, ECG, heart rate and blood pressure were monitored continuously. Resting and stress dose of radio tracer were injected, imaging was acquired and reviewed in short axis, horizontal long axis and vertical long axis views. TID: 1.05 SSS: 5 SDS: 1 EF: 38 1. Patient tolerated Lexiscan well 2. Diaphragmatic attenuation with fixed defect involving the inferior wall and inferoapical segment 3. Prominent left ventricle with diffuse left ventricular hypokinesia with ejection fraction 38% GAIL SANCHES MD Jan 28, 2022 14:14
== END ==
LOC: CARD 08:30
PROVIDERS: ATTEND Internal Medicine Cardiovascular Disease
DX: I11.9 Hypertensive heart disease without heart failure (principal); J98.6 Disorders of diaphragm; I25.10 Atherosclerotic heart disease of native coronary artery without angina pectoris
CPT/HCPCS: 78452; 93017

== ENCOUNTER 2022-02-11 09:00 | Day surgery (SDC) | payer MEDICARE ==
[2022-02-11] VITALS (10 sets, daily range): BP systolic 124–147; BP diastolic 64–82
[~2022-02-11] VITALS: Ht 175.3 cm; Wt 93.6 kg
[2022-02-11 07:45] LABS: HEMATOCRIT 41 % (40-54); HEMOGLOBIN 13.8 g/dL (13.3-17.7); MEAN CORPUSCULAR HEMOGLOBIN 31 pg (25-34); MEAN CORPUSCULAR HGB CONC 34 g/dL (32-36); MEAN CORPUSCULAR VOLUME 93 fL (80-99); MEAN PLATELET VOLUME 9.2 fL (9.0-12.2); PLATELET COUNT 144 10^3/uL (130-400); WHITE BLOOD COUNT 8.8 10^3/uL (4.3-11.0)
[2022-02-11 07:46] LABS: BILIRUBIN,URINE NEGATIVE (NEGATIVE); CLARITY,URINE CLEAR; COLOR,URINE YELLOW; GLUCOSE, URINE (UA) NEGATIVE (NEGATIVE); KETONES,URINE NEGATIVE (NEGATIVE); LEUKOCYTE ESTERASE ,URINE NEGATIVE (NEGATIVE); NITRITE,URINE NEGATIVE (NEGATIVE); PROTEIN,URINE 1+ (NEGATIVE)
[2022-02-11 07:55] LABS: BACTERIA,URINE NEGATIVE /HPF
[2022-02-11 08:02] LABS: ALBUMIN 3.7 GM/DL (3.2-4.5); POTASSIUM 4.1 MMOL/L (3.6-5.0)
--- NOTE | 2022-02-11 08:02 | Diagnostic Imaging Report ---
INDICATION: abn stress cp cad htn tobaccoism COMPARISON: 11/04/2016 FINDINGS: Single frontal view of the chest demonstrates mild cardiomegaly. Pulmonary vasculature is within normal limits. Left-sided dual-lead pacemaker and sternotomy wires are noted. The lungs are well aerated and clear. No large pleural effusion or pneumothorax is seen. The visualized osseous structures show no acute abnormalities. IMPRESSION: 1. Mild cardiomegaly, but no evidence of failure or focal infiltrate. Dictated by: Dictated on workstation # [id number]
[2022-02-11 08:03] LABS: INR 1.1 (0.8-1.4); PROTHROMBIN TIME PATIENT 14.8 SEC (12.2-14.7)
[2022-02-11 08:06] LABS: BILIRUBIN,TOTAL 0.6 MG/DL (0.1-1.0)
[2022-02-11 08:08] LABS: CREATININE SERUM 1.54 MG/DL (0.60-1.30)
--- NOTE | 2022-02-11 08:35 | Cardiac Procedure Note-CS/ASA ---
Pre-Procedure Note Pre-Op Procedure Note Date of Available H&P: Jan 29, 2022 Date H&P Reviewed: Feb 11, 2022 Time H&P Reviewed: 08:35 History & Physical: H&P Reviewed, Patient Examed, No changes noted Pre-Operative Diagnosis: CAD Conscious Sedation Pre-Proced Time 08:35 ASA Score 3 For ASA 3 and 4: Consider anesthesia and medical clearance. Also, for patients with a history of failed moderate sedation consider anesthesia. Airway Lungs Heart ASA score ASA 1: a normal healthy patient ASA 2: a patient with a mild systemic disease (mid diabetes, controlled hypertension, obesity ASA 3: a patient with a severe systemic disease that limits activity (angina, COPD, prior Myocardial infarction) ASA 4: a patient with an incapacitating disease that is a constant threat to life (CHF, renal failure) ASA 5: a moribund patient not expected to survive 24 hrs. (ruptured aneurysm) ASA 6: a declared brain- patient whose organs are being harvested. For emergent operations, add the letter E after the classification Mallampati Classification Grade 3 Sedation Plan Analgesia, Amnesia, Plan communicated to team members, Discussed options with patient/fam, Discussed risks with patient/fam The patient is an appropriate candidate to undergo the planned procedure, sedation, and anesthesia. The patient immediately re-assessed prior to indication. GAIL LOVETT MD Feb 11, 2022 08:35
[~2022-02-11 09:00] MED LIST changes: +AMIO200T65 PO; +APIX5TAB PO; +ATOR80TA76 PO; -CATHETER FLUSH 10 ML SYR IVP PRN; +EZET10TA49 PO; +HEParin (CATH LAB) 2,000 ML IV ONE; +LIDOCAINE 1% INJ 30 ML (XYLOCAINE) VIAL ONE; +LISI2.5T13 PO; +NS IV 1000 ML 1,000 ML IV SCH; +NS IV 1000 ML 1,000 ML ONE; +PANT40TA52 PO; +POTA-51 PO; -REGADENOSON 0.4 MG/5 ML SYR (LEXISCAN) IV ONE; +UMEC1BLS IH
[2022-02-11] MEDS ORDERED: fentaNYL INJ 100 MCG/2 ML AMP ONE (09:09)
[2022-02-11] MEDS ORDERED: MIDAZOLAM 5 MG/5 ML (VERSED) VIAL ONE (09:09)
--- NOTE | 2022-02-11 09:50 | Discharge Inst-Post CATH ---
Discharge Inst-CATH/EP Problems Reviewed?: Yes Post Cardiac Cath/EP D/C Inst Follow Up/Plan Appointment with Dr. Sanches's office in 2-4 weeks <b>CARDIAC CATH/EP PROCEDURE DISCHARGE INSTRUCTIONS</b> ACTIVITY * Go Home directly and rest. * Limit activity of the leg (or wrist if it was used) for 7 days including aerobics, swimming, jogging, bicycling, etc. * Restrict stair-climbing for 7 days if possible, if not, climb up with your non-cath leg, then bring together on the same step. * Avoid lifting, pushing, pulling or excessive movement of the affected extremity for 7 days. * Customary sexual activity may be resumed after 2 days-use caution not to use a position that strains or causes pain to the affected extremity. * No driving for 24 hours. * NO SMOKING. * Avoid straining for bowel movements for 7 days. * Gentle walking on level ground is allowed. * Returning to work will depend on the type of procedure and the results. Your doctor will discuss this with you. CALL YOUR DOCTOR FOR ANY OF THE FOLLOWING: *If bleeding from the puncture site occurs- Apply gentle pressure to site with clean cloth and call your doctor or EMS. * If a knot or lump forms under the skin, increases in size, or causes pain. * If bruising appears to be worsening or moving further down your leg instead of disappearing. * Temperature above 101 F. CARE OF YOUR GROIN INCISION; * Bruising or purple discoloration of the skin near the puncture site is common. * You may shower only, no bathtub bathing for 5 days. Be careful to avoid slipping as your leg may feel stiff. * If a closure device was used on your femoral artery, please see the attached guide regarding care of the device and your leg. * Leave dressing on FOR 24 hours. CARE OF YOUR WRIST INCISION; * Bruising or purple discoloration of the skin near the puncture site is common. * You may shower. * DO NOT submerge wrist. * Leave dressing on FOR 24 hours. GAIL SANCHES MD Feb 11, 2022 09:50
--- NOTE | 2022-02-11 09:55 | Cardiac Cath Report ---
Cardiac Cath Report Physician (s)/Truckload Owner Operator (s) Physician GAIL LOVETT MD Pre-Procedure Diagnosis Pre-Procedure Diagnosis: CAD Post-Procedure Note Procedure Start Date: Feb 11, 2022 Name of Procedure: Left heart catheterization VIDAL angiogram Right lower extremity runoff Findings/Procedure Note PROCEDURE NOTE: 71-year-old gentleman with history of coronary artery disease, multiple intervention, CABG x1, had an abnormal stress test with inferior wall ischemia, scheduled for cardiac catheterization After explaining the procedure to the patient, all pros and cons were explained, all questions were answered. The patient signed the consent and then he was placed on the cardiac catheterization laboratory. Groin was prepped SL fashion local anesthesia was used. Sheath placed in the artery. Migdalia right and left catheter were used to access the coronary system. VIDAL evaluated. Migdalia right was prolapsed to the left ventricular cavity, pressure was measured, pullback LV to aorta was done. Runoff to the right lower extremity was done after I noticed occlusion of the right SFA. At the end of the procedure the sheath was removed. Closure device was deployed FINDINGS: Hemodynamics LV 115/9, end-diastolic pressure of 9 Aorta 111/52 mean of 74 ANATOMY: Left Main has 30 to 40% stenosis distally nonobstructive disease Left Anterior Descending has a patent stent at the ostium and proximal LAD, the VIDAL to the LAD is patent with good flow distally Left Circumflex is dominant artery with patent stent proximally, diffuse moderate disease was noted distally at most 30% Ramus intermedius has patent stent at the ostium and proximal portion with moderate diffuse disease at most 30% Right Coronary Artery is small nondominant artery with 30% stenosis VIDAL to LAD was evaluated and appeared to be patent Right lower extremity runoff, the right common femoral artery is patent, the deep femoral artery is patent, the SFA is occluded proximally reconstructed by collateral just above the popliteal artery with three-vessel trifurcation runoff distally. CONCLUSION: 1. Patent VIDAL to LAD, patent stents in the proximal LAD, ramus intermedius and circumflex artery with moderate small vessel disease distally, dominant circumflex artery 2. Nondominant right coronary artery with mild to moderate disease nonobstructive disease 3. Normal left ventricular end-diastolic pressure 4. Total occlusion of the right SFA reconstructed by collateral above the popliteal artery DISCUSSION AND RECOMMENDATION: Continue to maximize medical therapy, I am planning to evaluate LILA and will consider percutaneous intervention of his right lower extremity Anesthesia Type: Conscious Sedation Estimated blood loss (mL): 15 ml Contrast Amount: 35 ml Total Radiation Dose: 253 mGy Post-Procedure Diagnosis Post-operative diagnosis: Coronary artery disease Mitral valve replacement Peripheral arterial disease Hypertension Hyperlipidemia. GAIL LOVETT MD Feb 11, 2022 09:55
[2022-02-11] MEDS ORDERED: PATIENT MAY USE OWN MEDS, ALL PO SCH (10:00)
[2022-02-11] MEDS ORDERED: NS IV 1000 ML 1,000 ML IV SCH (10:00)
== END 2022-02-11 14:00 | disposition home or self-care (01) ==
LOC: CATH 09:00 → SDC 09:55 → CATH 14:00
PROVIDERS: ATTEND Internal Medicine Cardiovascular Disease
DX: I25.10 Atherosclerotic heart disease of native coronary artery without angina pectoris (principal); I73.9 Peripheral vascular disease, unspecified; I10 Essential (primary) hypertension; E78.5 Hyperlipidemia, unspecified; F17.210 Nicotine dependence, cigarettes, uncomplicated; I48.0 Paroxysmal atrial fibrillation; I65.23 Occlusion and stenosis of bilateral carotid arteries; J44.9 Chronic obstructive pulmonary disease, unspecified; Z79.01 Long term (current) use of anticoagulants; Z95.2 Presence of prosthetic heart valve; Z95.5 Presence of coronary angioplasty implant and graft
CPT/HCPCS: 71045; 75710; 80053; 81000; 85027; 85610; 85730; 87081; 93005; 93459; C1760; C1894; 36415

== ENCOUNTER 2022-03-20 07:43 | Day surgery (SDC) | payer MEDICARE ==
[~2022-03-20] VITALS: Ht 175 cm; Wt 93.8 kg
[2022-03-20] VITALS (7 sets, daily range): BP systolic 121–157; BP diastolic 58–84
[~2022-03-20 07:43] MED LIST changes: -HEParin (CATH LAB) 2,000 ML IV ONE; -LIDOCAINE 1% INJ 30 ML (XYLOCAINE) VIAL ONE; -NS IV 1000 ML 1,000 ML IV SCH; -NS IV 1000 ML 1,000 ML ONE
[2022-03-20] MEDS ORDERED: LIDOCAINE 1% INJ 20 ML VIAL ONE (08:00)
[2022-03-20] MEDS ORDERED: NS IV 1000 ML 1,000 ML IV ONE (08:00)
[2022-03-20] MEDS ORDERED: NS IV 1000 ML 1,000 ML IV SCH (08:00)
[2022-03-20] MEDS ORDERED: NS IV 1000 ML 1,000 ML ONE (08:01)
[2022-03-20] MEDS ORDERED: HEParin (CATH LAB) 2,000 ML IV ONE (08:01)
--- NOTE | 2022-03-20 08:23 | Diagnostic Imaging Report ---
INDICATION: Coronary artery disease. EXAMINATION: Portable chest at 8:06 AM. FINDINGS: There are postop changes from median sternotomy. There is a dual-chamber pacemaker. The heart size and pulmonary vascularity are normal. The lungs are clear. There are no effusions or pneumothoraces. IMPRESSION: Post surgical changes in the chest. No acute abnormality is seen. Dictated by: Dictated on workstation # [id number]
[2022-03-20] MEDS ORDERED: ISOS30TA82 PO (08:37)
[2022-03-20 08:46] LABS: BILIRUBIN,URINE NEGATIVE (NEGATIVE); CLARITY,URINE CLEAR; COLOR,URINE YELLOW; GLUCOSE, URINE (UA) NEGATIVE (NEGATIVE); HEMOGLOBIN 13.4 g/dL (13.3-17.7); KETONES,URINE NEGATIVE (NEGATIVE); LEUKOCYTE ESTERASE ,URINE NEGATIVE (NEGATIVE); MEAN PLATELET VOLUME 9.1 fL (9.0-12.2); NITRITE,URINE NEGATIVE (NEGATIVE); PH,URINE 6.5 (5-9); PROTEIN,URINE NEGATIVE (NEGATIVE)
[2022-03-20 08:58] LABS: BACTERIA,URINE NEGATIVE /HPF; INR 1.2 (0.8-1.4); PROTHROMBIN TIME PATIENT 15.5 SEC (12.2-14.7); SQUAMOUS EPITHELIAL CELL,UR RARE /HPF
[2022-03-20 09:07] LABS: ALBUMIN 3.7 GM/DL (3.2-4.5); BILIRUBIN,TOTAL 0.8 MG/DL (0.1-1.0); CALCIUM 9.3 MG/DL (8.5-10.1); CREATININE SERUM 1.52 MG/DL (0.60-1.30); POTASSIUM 4.1 MMOL/L (3.6-5.0); TOTAL PROTEIN 7.4 GM/DL (6.4-8.2)
--- NOTE | 2022-03-20 10:34 | Cardiac Procedure Note-CS/ASA ---
Pre-Procedure Note Pre-Op Procedure Note Date of Available H&P: Mar 05, 2022 Date H&P Reviewed: Mar 20, 2022 Time H&P Reviewed: 10:33 History & Physical: H&P Reviewed, Patient Examed, No changes noted Pre-Operative Diagnosis: PAD Conscious Sedation Pre-Proced Time 10:33 ASA Score 3 For ASA 3 and 4: Consider anesthesia and medical clearance. Also, for patients with a history of failed moderate sedation consider anesthesia. Airway Lungs Heart ASA score ASA 1: a normal healthy patient ASA 2: a patient with a mild systemic disease (mid diabetes, controlled hypertension, obesity ASA 3: a patient with a severe systemic disease that limits activity (angina, COPD, prior Myocardial infarction) ASA 4: a patient with an incapacitating disease that is a constant threat to life (CHF, renal failure) ASA 5: a moribund patient not expected to survive 24 hrs. (ruptured aneurysm) ASA 6: a declared brain- patient whose organs are being harvested. For emergent operations, add the letter E after the classification Mallampati Classification Grade 3 Sedation Plan Analgesia, Amnesia, Plan communicated to team members, Discussed options with patient/fam, Discussed risks with patient/fam The patient is an appropriate candidate to undergo the planned procedure, sedation, and anesthesia. The patient immediately re-assessed prior to indication. GAIL LOVETT MD Mar 20, 2022 10:33
[2022-03-20] MEDS ORDERED: fentaNYL INJ 100 MCG/2 ML AMP ONE ×2 (10:57→12:40)
[2022-03-20] MEDS ORDERED: MIDAZOLAM 5 MG/5 ML (VERSED) VIAL ONE ×2 (10:57→12:41)
[2022-03-20] MEDS ORDERED: HEParin 1000 UNIT/ML (10ML VIAL) FOR BOLUS ONE (11:08)
[2022-03-20] MEDS ORDERED: NITRO DRIP 25000 MCG/D5W 0 ML IV ONE (11:09)
[2022-03-20] MEDS ORDERED: HEParin (CATH LAB) 1,000 ML IV ONE (12:22)
[2022-03-20] MEDS ORDERED: ASPIRIN 325 MG (5 GR) TABLET ONE (13:47)
[2022-03-20] MEDS ORDERED: CLOPIDOGREL 300 MG (PLAVIX) TABLET PO ONE (13:47)
[2022-03-20] MEDS ORDERED: RT-ALBUTEROL SULF 2.5 MG/3 ML PRE-MIX VIAL INH PRN (14:00)
[2022-03-20] MEDS ORDERED: ALPRAZolam 1 MG (XANAX) TAB PO PRN (14:00)
[2022-03-20] MEDS ORDERED: PATIENT MAY USE OWN MEDS, ALL PO SCH (14:00)
--- NOTE | 2022-03-20 14:00 | Peripheral Report ---
Peripheral Report Physician (s)/Crowd Controller (s) Physician GAIL LOVETT MD Pre-Procedure Diagnosis Pre-Procedure Diagnosis: PAD Post-Procedure Note Procedure Start Date: Mar 20, 2022 Name of Procedure: Bilateral lower extremities runoff Third order Additional imaging x2 Stenting to the right SFA Findings/Procedure Note PROCEDURE NOTE: 71-year-old gentleman with peripheral arterial disease, has been having increasing claudication, scheduled for peripheral angiogram, the right was worse than the left. After explaining the procedure to the patient, all pros and cons were explained, all questions were answered. The patient signed the consent and then he was placed on the cardiac catheterization laboratory. The patient was placed on the cardiac catheterization laboratory. Groin was prepped SL fashion local anesthesia was used. Sheath placed in the left femoral artery Runoff to the left lower extremity was done through the sheath. Using a rim catheter it was placed at the right common iliac and runoff to the right leg was done, patient has total occlusion of the right SFA proximally. Reconstructed by collateral at the popliteal artery. [employer] wire was placed and sheath was changed to 7 M[place]gasque 45 cm sheath. I used multiple different wires to cross the lesion. I was most successful with a combination of command 18 short-tip and connect 250. I used the support of mini catheter and I kept following until I reached the popliteal artery. The wire was removed and did manual injection at the trifurcation level with the mini catheter confirmed the position in the true lumen. Then placed the command 18 short-tip and proceeded initially with balloon dilatation using Vinton 5 x 150 then I used Vinton 6 x 200. After reestablishing the lumen I proceeded with deployment of 3 stents. Distally Supera 6 x 150 followed in the mid by Supera 6 x 150 and proximally just below the ostium I use absolute Pro 7 x 80. Postdilated with the 6 x 200 balloon. Angiogram showed excellent results. Sheath was exchanged again to a short 7 [place]gasque sheath then I proceeded with deployment of Perclose with no complication. Hemostasis achieved FINDINGS: Left lower extremity: Total occlusion at the mid left SFA reconstructed by collateral heavy calcification. 2 vessels runoff below the knee. Right lower extremity: Mild disease in the right common iliac and common femoral artery. Total occlusion at the long segment just below the ostium of the right SFA reconstructed at the level of the popliteal artery, complex and long intervention with deployment of 3 stents extending from the ostium of the right SFA down to the popliteal artery Two-vessel runoff below the knee CONCLUSIONS: 1. Total occlusion of the long segment of the right SFA down to the popliteal artery successful complex intervention with deployment of 3 stents distally Supera 6 x 150 followed at the midportion Supera 6 x 150 and at the ostium using absolute Pro 7 x 80 overlapping stent postdilated by 6.0 balloon with excellent results and reestablishment of flow down to the trifurcation with two-vessel runoff. 2. Total occlusion at the mid to distal left SFA at the short segment, will be staged for intervention at a later point 3. Successful deployment of Perclose DISCUSSION AND RECOMMENDATIONS: Continue maximizing medical therapy. Anesthesia Type: Conscious Sedation Estimated blood loss (mL): 50 ml Contrast Amount: 78 kml Total Radiation Dose: 1050 mGy Post-Procedure Diagnosis Post-operative diagnosis: Peripheral arterial disease Coronary artery disease Hypertension Hyperlipidemia GAIL LOVETT MD Mar 20, 2022 14:00
[2022-03-20] MEDS: NS IV 1000 ML 1,000 ML IV SCH ×2 (15:07→20:03)
[2022-03-21 03:21] VITALS: BP 136/74
[2022-03-21 03:54] LABS: MEAN PLATELET VOLUME 9.2 fL (9.0-12.2)
[2022-03-21 03:56] LABS: WHITE BLOOD COUNT 10.3 10^3/uL (4.3-11.0)
[2022-03-21 04:11] LABS: POTASSIUM 4.7 MMOL/L (3.6-5.0)
[2022-03-21 04:12] LABS: CALCIUM 8.6 MG/DL (8.5-10.1)
[2022-03-21 04:16] LABS: CREATININE SERUM 1.45 MG/DL (0.60-1.30)
[2022-03-21] MEDS: NS IV 1000 ML 1,000 ML IV SCH (06:28)
[2022-03-21] MEDS ORDERED: KCL 20 MEQ TAB (K-DUR) PO SCH (07:00)
[2022-03-21 07:35] VITALS: BP 126/58
[2022-03-21] MEDS ORDERED: CLOP75TA28 PO (08:11)
--- NOTE | 2022-03-21 08:12 | Discharge Inst-Post CATH ---
Discharge Inst-CATH/EP Problems Reviewed?: Yes Post Cardiac Cath/EP D/C Inst Follow Up/Plan Scheduled for angiogram on WednesdayMarch 27 <b>CARDIAC CATH/EP PROCEDURE DISCHARGE INSTRUCTIONS</b> ACTIVITY * Go Home directly and rest. * Limit activity of the leg (or wrist if it was used) for 7 days including aerobics, swimming, jogging, bicycling, etc. * Restrict stair-climbing for 7 days if possible, if not, climb up with your no n-cath leg, then bring together on the same step. * Avoid lifting, pushing, pulling or excessive movement of the affected ext remity for 7 days. * Customary sexual activity may be resumed after 2 days-use caution not to use a position that strains or causes pain to the affected extremity. * No driving for 24 hours. * NO SMOKING. * Avoid straining for bowel movements for 7 days. * Gentle walking on level ground is allowed. * Returning to work will depend on the type of procedure and the results. Your doctor will discuss this with you. CALL YOUR DOCTOR FOR ANY OF THE FOLLOWING: *If bleeding from the puncture site occurs- Apply gentle pressure to site with clean cloth and call your doctor or EMS. * If a knot or lump forms under the skin, increases in size, or causes pain. * If bruising appears to be worsening or moving further down your leg instead of disappearing. * Temperature above 101 F. CARE OF YOUR GROIN INCISION; * Bruising or purple discoloration of the skin near the puncture site is common. * You may shower only, no bathtub bathing for 5 days. Be careful to avoid slipping as your leg may feel stiff. * If a closure device was used on your femoral artery, please see the attached guide regarding care of the device and your leg. * Leave dressing on FOR 24 hours. CARE OF YOUR WRIST INCISION; * Bruising or purple discoloration of the skin near the puncture site is common. * You may shower. * DO NOT submerge wrist. * Leave dressing on FOR 24 hours. GAIL LOVETT MD Mar 21, 2022 08:12
[2022-03-21] MEDS ORDERED: FUROSEMIDE 40 MG (LASIX) TAB PO SCH (09:00)
[2022-03-21] MEDS ORDERED: PANTOPRAZOLE 40 MG (PROTONIX) TAB PO SCH (09:00)
[2022-03-21] MEDS ORDERED: AMIODARONE 200 MG (CORDARONE) TAB PO SCH (09:00)
[2022-03-21] MEDS ORDERED: lisINopril 5 MG (PRINIVIL) TABLET PO SCH (09:00)
[2022-03-21] MEDS ORDERED: ASPIRIN E.C. 81 MG (ECOTRIN) TAB PO SCH (09:00)
[2022-03-21] MEDS ORDERED: CLOPIDOGREL 75 MG (PLAVIX) TABLET PO SCH (09:00)
[2022-03-21] MEDS ORDERED: eZETimibe 10 MG (ZETIA) TABLET PO SCH (09:00)
[2022-03-21] MEDS ORDERED: ISOSORBIDE MONONITRATE 30 MG (IMDUR) TAB PO SCH (09:00)
--- NOTE | 2022-03-21 09:27 | Cardiology Progress Note ---
Subjective Date Seen by Provider: Mar 21, 2022 Time Seen by Provider: 09:26 Subjective/Events-last exam Patient was seen at bedside, laying down comfortably Review of Systems General: No Chills, No Night Sweats, No Fatigue, No Malaise, No Appetite, No Other HEENT: No Head Aches, No Visual Changes, No Eye Pain, No Ear Pain, No Dysphasia, No Sinus Congestion, No Post Nasal Drip, No Sore Throat, No Other Pulmonary: No Dyspnea, No Cough, No Pleuritic Chest Pain, No Other Cardiovascular: No: Chest Pain, Palpitations, Orthopnea, Paroxysmal Noc. Dyspnea, Edema, Lt Headedness, Other Objective-Cardiology Exam Last Set of Vital Signs Vital Signs 03/21/22 07:35 Temp 36.4 Pulse 60 Resp 18 B/P (MAP) 126/58 (80) Pulse Ox 98 O2 Delivery Nasal Cannula O2 Flow Rate 2.00 I&O Intake and Output 03/21/22 00:00 Intake Total 1000 ml Balance 1000 ml Intake IV Total 1000 ml General: Alert, Oriented X3, Cooperative HEENT: Atraumatic, PERRLA Neck: Supple, No JVD, No Thyromegaly Lungs: Clear to Auscultation, Normal Air Movement Heart: Regular Rate, Normal S1, Normal S2, No Murmurs Abdomen: Normal Bowel Sounds, Soft, No Tenderness, No Hepatosplenomegaly, No Masses Extremities: No Clubbing, No Cyanosis, No Edema, Normal Pulses, No Tenderness/Swelling Skin: No Rashes, No Breakdown, No Significant Lesion Neuro: Normal Gait, Normal Speech, Strength at 5/5 X4 Ext, Normal Tone, Sensati on Intact Psych/Mental Status: Mental Status NL, Mood NL Results Lab Laboratory Tests 03/21/22 03:42 A/P-Cardiology Admission Diagnosis Claudication Peripheral arterial disease Hypertension Hyperlipidemia Assessment/Plan Claudication, peripheral arterial disease, complex intervention with stenting of the right SFA with excellent result He will be scheduled for next week for intervention on the left SFA Hypertension, restart home medication Hyperlipidemia, monitor lipids Coronary artery disease, continue current medication Paroxysmal atrial fibrillation GAIL LOVETT MD Mar 21, 2022 09:27
== END 2022-03-21 10:20 | disposition home or self-care (01) ==
LOC: CATH 07:43 → CSD 14:11 → CATH 03-21 10:20
PROVIDERS: ATTEND Internal Medicine Cardiovascular Disease
DX: I70.213 Atherosclerosis of native arteries of extremities with intermittent claudication, bilateral legs (principal); I70.92 Chronic total occlusion of artery of the extremities; I10 Essential (primary) hypertension; E78.5 Hyperlipidemia, unspecified; I25.10 Atherosclerotic heart disease of native coronary artery without angina pectoris; I48.0 Paroxysmal atrial fibrillation
CPT/HCPCS: 37226; 71045; 80048; 80053; 80061; 81000; 85027 ×2; 85610; 85730; 87081; 93005; C1725 ×2; C1769 ×5; C1876 ×2; C1887 ×4; C1894 ×2; 36415

== ENCOUNTER 2022-04-17 09:00 | Day surgery (SDC) | payer MEDICARE ==
[~2022-04-17] VITALS: Ht 175 cm; Wt 93.8 kg
[2022-04-17] VITALS (19 sets, daily range): BP systolic 132–181; BP diastolic 60–90
[~2022-04-17 09:00] MED LIST changes: +HEParin (CATH LAB) 2,000 ML IV ONE; +LIDOCAINE 1% INJ 20 ML VIAL ONE; +NS IV 1000 ML 1,000 ML IV ONE; +NS IV 1000 ML 1,000 ML ONE
[2022-04-17 09:14] LABS: HEMOGLOBIN 13.1 g/dL (13.3-17.7)
[2022-04-17] MEDS ORDERED: GABA-486 PO (09:15)
[2022-04-17 09:16] LABS: MEAN PLATELET VOLUME 9.1 fL (9.0-12.2); WHITE BLOOD COUNT 10.1 10^3/uL (4.3-11.0)
[2022-04-17 09:23] LABS: INR 1.1 (0.8-1.4); PROTHROMBIN TIME PATIENT 14.9 SEC (12.2-14.7)
[2022-04-17 09:31] LABS: ALBUMIN 3.8 GM/DL (3.2-4.5); BILIRUBIN,TOTAL 0.8 MG/DL (0.1-1.0); CALCIUM 8.9 MG/DL (8.5-10.1); CREATININE SERUM 1.48 MG/DL (0.60-1.30); POTASSIUM 3.9 MMOL/L (3.6-5.0); TOTAL PROTEIN 7.7 GM/DL (6.4-8.2)
[2022-04-17] MEDS ORDERED: MIDAZOLAM 5 MG/5 ML (VERSED) VIAL ONE (09:37)
[2022-04-17] MEDS ORDERED: fentaNYL INJ 100 MCG/2 ML AMP ONE ×2 (09:37→11:10)
--- NOTE | 2022-04-17 09:46 | Cardiac Procedure Note-CS/ASA ---
Pre-Procedure Note Pre-Op Procedure Note Date of Available H&P: Mar 21, 2022 Date H&P Reviewed: Apr 17, 2022 Time H&P Reviewed: 09:46 History & Physical: H&P Reviewed, Patient Examed, No changes noted Pre-Operative Diagnosis: PAD Conscious Sedation Pre-Proced Time 09:46 ASA Score 3 For ASA 3 and 4: Consider anesthesia and medical clearance. Also, for patients with a history of failed moderate sedation consider anesthesia. Airway Lungs Heart ASA score ASA 1: a normal healthy patient ASA 2: a patient with a mild systemic disease (mid diabetes, controlled hypertension, obesity ASA 3: a patient with a severe systemic disease that limits activity (angina, COPD, prior Myocardial infarction) ASA 4: a patient with an incapacitating disease that is a constant threat to life (CHF, renal failure) ASA 5: a moribund patient not expected to survive 24 hrs. (ruptured aneurysm) ASA 6: a declared brain- patient whose organs are being harvested. For emergent operations, add the letter E after the classification Mallampati Classification Grade 3 Sedation Plan Analgesia, Amnesia, Plan communicated to team members, Discussed options with patient/fam, Discussed risks with patient/fam The patient is an appropriate candidate to undergo the planned procedure, sedation, and anesthesia. The patient immediately re-assessed prior to indication. GAIL LOVETT MD Apr 17, 2022 09:46
[2022-04-17] MEDS ORDERED: NITRO DRIP 25000 MCG/D5W 250 ML IV ONE (09:47)
[2022-04-17] MEDS ORDERED: HEParin 1000 UNIT/ML (10ML VIAL) FOR BOLUS ONE (09:47)
[2022-04-17] MEDS ORDERED: NS IV 1000 ML 1,000 ML ONE (10:41)
[2022-04-17] MEDS ORDERED: VERAPAMIL 5 MG/2 ML (CALAN) VIAL IV ONE (10:41)
[2022-04-17] MEDS ORDERED: MIDAZOLAM 2 MG/2 ML (VERSED) VIAL ONE (11:11)
[2022-04-17] MEDS ORDERED: CLOPIDOGREL 300 MG (PLAVIX) TABLET PO ONE (11:33)
[2022-04-17] MEDS ORDERED: ASPIRIN 325 MG (5 GR) TABLET ONE (11:33)
[2022-04-17] MEDS ORDERED: PATIENT MAY USE OWN MEDS, ALL PO SCH (11:45)
[2022-04-17] MEDS ORDERED: RT-ALBUTEROL SULF 2.5 MG/3 ML PRE-MIX VIAL INH PRN (11:45)
[2022-04-17] MEDS ORDERED: NON-FORMULARY MEDICATION 1 EA EA (Umeclidinium Brm/Vilanterol Tr (Anoro Ellipta 62.5-25 Mc IH PRN (11:45)
[2022-04-17] MEDS ORDERED: ALPRAZolam 1 MG (XANAX) TAB PO PRN (11:45)
[2022-04-17] MEDS ORDERED: NS IV 1000 ML 1,000 ML IV SCH (11:45)
--- NOTE | 2022-04-17 11:49 | Peripheral Report ---
Peripheral Report Physician (s)/Zipper Setter (s) Physician GAIL LOVETT MD Pre-Procedure Diagnosis Pre-Procedure Diagnosis: PAD Post-Procedure Note Procedure Start Date: Apr 17, 2022 Name of Procedure: Bilateral lower extremities runoff Third order Atherectomy then stenting to the left SFA Findings/Procedure Note PROCEDURE NOTE: 71-year-old gentleman with extensive peripheral arterial disease, had complex intervention to the right lower extremities. Has been doing well, I scheduled him for peripheral angiogram and intervention on the left lower extremity. After explaining the procedure to the patient, all pros and cons were explained, all questions were answered. The patient signed the consent and then he was placed on the cardiac catheterization laboratory. The patient was placed on the cardiac catheterization laboratory. Groin was prepped SL fashion local anesthesia was used. Sheath placed in the right femoral artery, runoff to the right lower extremity was done then using a rim catheter I crossed over then advanced as sheath to the proximal left SFA I started with 035 Glidewire crossed a total occlusion then advanced Villanueva cross cross catheter and exchanged the wire used Viper wire then proceeded with diamondback atherectomy to the total occlusion, multiple runs were done. I noted a small perforation. Advanced 5 x 100 balloon did multiple inflation then used 6 x 150 balloon and did another long inflation then proceeded with deployment of Supera 6 x 120 postdilated with 150 balloon, angiogram showed excellent result with no residual stenosis Sheath was exchanged to a short 6 [place] sheath then closure device deployed FINDINGS: Right lower extremity: Multiple stents in the SFA are patent, the ostium of the stent has some plaque. There is no obstructive disease with excellent flow down to the trifurcation Left lower extremity Left SFA is totally occluded at the midportion long segment heavily calcified, successful atherectomy then balloon angioplasty then deployment of Supera 6 x 120 with excellent results, no residual stenosis. Below the trifurcation there is moderate disease in the anterior tibial artery and peroneal artery nonobstructive disease CONCLUSIONS: Successful atherectomy then deployment of Supera 6 x 120 in the left SFA with no complication DISCUSSION AND RECOMMENDATIONS: Continue to maximize medical therapy Anesthesia Type: Conscious Sedation Estimated blood loss (mL): 25 ml Contrast Amount: 40 ml Total Radiation Dose: 445 mGy Post-Procedure Diagnosis Post-operative diagnosis: Coronary artery disease Peripheral arterial disease Claudication Hypertension Hyperlipidemia GAIL LOVETT MD Apr 17, 2022 11:49
--- NOTE | 2022-04-17 11:50 | Discharge Inst-Post CATH ---
Discharge Inst-CATH/EP Problems Reviewed?: Yes Post Cardiac Cath/EP D/C Inst Follow Up/Plan Appointment with Dr. Sanches's office in 2 to 4 weeks <b>CARDIAC CATH/EP PROCEDURE DISCHARGE INSTRUCTIONS</b> ACTIVITY * Go Home directly and rest. * Limit activity of the leg (or wrist if it was used) for 7 days including aer obics, swimming, jogging, bicycling, etc. * Restrict stair-climbing for 7 days if possible, if not, climb up with your non-cath leg, then bring together on the same step. * Avoid lifting, pushing, pulling or excessive movement of the affected extremi ty for 7 days. * Customary sexual activity may be resumed after 2 days-use caution not to use a position that strains or causes pain to the affected extremity. * No driving for 24 hours. * NO SMOKING. * Avoid straining for bowel movements for 7 days. * Gentle walking on level ground is allowed. * Returning to work will depend on the type of procedure and the results. Your doctor will discuss this with you. CALL YOUR DOCTOR FOR ANY OF THE FOLLOWING: *If bleeding from the puncture site occurs- Apply gentle pressure to site with clean cloth and call your doctor or EMS. * If a knot or lump forms under the skin, increases in size, or causes pain. * If bruising appears to be worsening or moving further down your leg instead of disappearing. * Temperature above 101 F. CARE OF YOUR GROIN INCISION; * Bruising or purple discoloration of the skin near the puncture site is common. * You may shower only, no bathtub bathing for 5 days. Be careful to avoid slipping as your leg may feel stiff. * If a closure device was used on your femoral artery, please see the attached guide regarding care of the device and your leg. * Leave dressing on FOR 24 hours. CARE OF YOUR WRIST INCISION; * Bruising or purple discoloration of the skin near the puncture site is common. * You may shower. * DO NOT submerge wrist. * Leave dressing on FOR 24 hours. GAIL SANCHES MD Apr 17, 2022 11:50
[2022-04-17] MEDS ORDERED: NICOTINE 21 MG (NICODERM) PATCH TD NR (12:30)
[2022-04-17] MEDS ORDERED: GABAPENTIN 100 MG (NEURONTIN) CAP PO SCH (14:00)
[2022-04-17] MEDS ORDERED: APIXABAN 5 MG (ELIQUIS) TABLET PO SCH (21:00)
[2022-04-17] MEDS ORDERED: NON-FORMULARY MEDICATION 1 EA EA (Escitalopram Oxalate 10 MG) PO SCH (21:00)
[2022-04-18] MEDS ORDERED: KCL 20 MEQ TAB (K-DUR) PO SCH (07:00)
[2022-04-18] MEDS ORDERED: eZETimibe 10 MG (ZETIA) TABLET PO SCH (09:00)
[2022-04-18] MEDS ORDERED: FUROSEMIDE 40 MG (LASIX) TAB PO SCH (09:00)
[2022-04-18] MEDS ORDERED: ASPIRIN E.C. 81 MG (ECOTRIN) TAB PO SCH (09:00)
[2022-04-18] MEDS ORDERED: lisINopril 5 MG (PRINIVIL) TABLET PO SCH (09:00)
[2022-04-18] MEDS ORDERED: NON-FORMULARY MEDICATION 1 EA EA (Potassium Chloride 20 MEQ) PO SCH (09:00)
[2022-04-18] MEDS ORDERED: ISOSORBIDE MONONITRATE 30 MG (IMDUR) TAB PO SCH (09:00)
[2022-04-18] MEDS ORDERED: PANTOPRAZOLE 40 MG (PROTONIX) TAB PO SCH (09:00)
[2022-04-18] MEDS ORDERED: NON-FORMULARY MEDICATION 1 EA EA (Lisinopril 2.5 MG) PO SCH (09:00)
[2022-04-18] MEDS ORDERED: AMIODARONE 200 MG (CORDARONE) TAB PO SCH (09:00)
[2022-04-18] MEDS ORDERED: CLOPIDOGREL 75 MG (PLAVIX) TABLET PO SCH ×2 (09:00)
[2022-04-18] MEDS ORDERED: NICOTINE PATCH REMOVAL TP SCH (12:00)
== END 2022-04-17 17:15 | disposition home or self-care (01) ==
LOC: CATH 09:00 → CSD 12:05 → CATH 17:15
PROVIDERS: ATTEND Internal Medicine Cardiovascular Disease
DX: I70.212 Atherosclerosis of native arteries of extremities with intermittent claudication, left leg (principal); I70.92 Chronic total occlusion of artery of the extremities; I10 Essential (primary) hypertension; I25.10 Atherosclerotic heart disease of native coronary artery without angina pectoris; F17.210 Nicotine dependence, cigarettes, uncomplicated; I48.0 Paroxysmal atrial fibrillation; E78.2 Mixed hyperlipidemia; I65.23 Occlusion and stenosis of bilateral carotid arteries; J44.9 Chronic obstructive pulmonary disease, unspecified; Z79.01 Long term (current) use of anticoagulants
CPT/HCPCS: 37227; 80053; 85027; 85610; 85730; 87081; 93005; C1724; C1725; C1760; C1769 ×4; C1876; C1887; C1894 ×2; 36415

== ENCOUNTER 2022-05-11 19:48 | Inpatient (IN) | payer MEDICARE, MEDICAID ==
[~2022-05-11] VITALS: Ht 175 cm; Wt 100.0 kg
[~2022-05-11 19:48] MED LIST changes: +GABA-486 PO; -HEParin (CATH LAB) 2,000 ML IV ONE; -LIDOCAINE 1% INJ 20 ML VIAL ONE; -NS IV 1000 ML 1,000 ML IV ONE; -NS IV 1000 ML 1,000 ML ONE
[2022-05-11 20:25] LABS: BASOPHILS # (AUTO) 0.1 10^3/uL (0.0-0.1); BASOPHILS % (AUTO) 1 % (0-10); EOSINOPHILS # (AUTO) 0.4 10^3/uL (0.0-0.3); EOSINOPHILS % (AUTO) 4 % (0-10); HEMATOCRIT 37 % (40-54); HEMOGLOBIN 12.1 g/dL (13.3-17.7); LYMPHOCYTES # (AUTO) 1.7 10^3/uL (1.0-4.0); LYMPHOCYTES % (AUTO) 21 % (12-44); MEAN CORPUSCULAR HEMOGLOBIN 32 pg (25-34); MEAN CORPUSCULAR HGB CONC 33 g/dL (32-36); MEAN CORPUSCULAR VOLUME 96 fL (80-99); MEAN PLATELET VOLUME 9.2 fL (9.0-12.2); MONOCYTES # (AUTO) 0.6 10^3/uL (0.0-1.0); MONOCYTES % (AUTO) 7 % (0-12); NEUTROPHILS # (AUTO) 5.6 10^3/uL (1.8-7.8); NEUTROPHILS % (AUTO) 67 % (42-75); PLATELET COUNT 137 10^3/uL (130-400); WHITE BLOOD COUNT 8.4 10^3/uL (4.3-11.0)
[2022-05-11 20:38] LABS: INR 1.1 (0.8-1.4); PROTHROMBIN TIME PATIENT 14.9 SEC (12.2-14.7)
--- NOTE | 2022-05-11 20:39 | Diagnostic Imaging Report ---
INDICATION: 71-year-old male presents with chest pain. COMPARISONS: 03/20/2022 FINDINGS: Single view of the chest shows the cardiac contour to be upper limits of normal. There is moderate central venous congestion. Scattered atelectatic infiltrates are seen in the lower lobes and left lingula and right middle lobe. There is a previous median sternotomy for a CABG. There is a dual-chamber left-sided ICD. An old healed deformity right clavicular fracture again noted. IMPRESSION: 1. Developing congestive heart failure. Some scattered infiltrates are seen in the lower lobes, right middle lobe and left lingula. 2. Previous median sternotomy for a CABG. Dictated by: Dictated on workstation # [id number]
--- NOTE | 2022-05-11 20:43 | ED Respiratory ---
General Chief Complaint: Respiratory Problems Stated Complaint: DIFFICULTY BREATHING, SWELLING Nursing Triage Note: Pt presents with c/o respiratory distress that started a couple of hours prior to arrival. Pt states he's had weight gain since . Pt states he had artery's in legs cleaned out approx 3 weeks ago, and had a follow up with Dr. Sanches on 05/07. Pt denies chest pain. Source: patient Exam Limitations: no limitations (CHARLENE COTE APRN) History of Present Illness Date Seen by Provider: May 11, 2022 Time Seen by Provider: 20:29 Initial Comments 71-year-old male presents to the ED with complaints of shortness of air starting around 4 or 5 PM. He also reports a 21 pound weight gain over the last 1 to 2 days. Reports he had 2-3 episodes of vomiting last night. Currently denies fev ers, chest pain, abdominal pain, nausea. Past medical history includes COPD, CHF, hypertension, UT. He continues to smoke. (CHARLENE COTE APRN) Allergies and Home Medications Allergies Coded Allergies: morphine (Unverified Adverse Reaction, Unknown, "MAKES ME CRAZY", 09/04/13) Patient Home Medication List Home Medication List Reviewed: Yes (CHARLENE COTE APRN) Albuterol Sulfate (Ventolin Hfa) 90 Mcg Hfa.aer.ad, 2 PUFF INH Q4H PRN for SHORTNESS OF BREATH, (Reported) Entered as Reported by: ABI BANKS on 11/05/16856 Last Action: Held Alprazolam (Alprazolam) 1 Mg Tablet, 1 MG PO BID PRN for ANXIETY, (Reported) Entered as Reported by: ABI BANKS on 11/05/16856 Last Action: Continued Amiodarone HCl (Amiodarone HCl) 200 Mg Tablet, 200 MG PO DAILY, (Reported) Entered as Reported by: HUBERT LI on 02/11/22809 Last Action: Continued Apixaban (Eliquis) 5 Mg Tablet, 5 MG PO BID, (Reported) Entered as Reported by: HUBERT LI on 02/11/22809 Last Action: Held Atorvastatin Calcium (Atorvastatin Calcium) 80 Mg Tablet, 80 MG PO HS, (Reported) Entered as Reported by: HUBERT LI on 02/11/22809 Last Action: Continued Cefdinir (Cefdinir) 300 Mg Capsule, 300 MG PO BID Prescribed by: DION SÁNCHEZ on 05/13/22 1127 Clopidogrel Bisulfate (Clopidogrel) 75 Mg Tablet, 75 MG PO DAILY, (Reported) Entered as Reported by: LUCAS SAMANIEGO on 05/12/22 154 Last Action: Continued Escitalopram Oxalate (Escitalopram Oxalate) 10 Mg Tablet, 10 MG PO HS, (Reported) Entered as Reported by: ABI BANKS on 09/26/15 1321 Last Action: Converted Ezetimibe (Ezetimibe) 10 Mg Tablet, 10 MG PO HS, (Reported) Entered as Reported by: HUBERT LI on 02/11/22809 Last Action: Continued Fluticasone Propionate (Fluticasone Propionate) 50 Mcg/Actuation [place].susp, 1-2 SPRAY NSEACH DAILY, (Reported) Entered as Reported by: LUCAS SAMANIEGO on 05/12/221539 Last Action: Continued Furosemide (Furosemide) 40 Mg Tablet, 40 MG PO DAILY, (Reported) Entered as Reported by: HUBERT LI on 02/11/22809 Last Action: Continued Ipratropium [place] (Atrovent Hfa) 17 Mcg/Actuation Aers, 2 PUFF INH QID, (Reported) Entered as Reported by: LUCAS SAMANIEGO on 05/13/22926 Last Action: Reviewed Isosorbide Mononitrate (Isosorbide Mononitrate ER) 30 Mg Tab.er.24h, 30 MG PO DAILY, (Reported) Entered as Reported by: ADELA LEDESMA on 03/20/22 08 Last Action: Continued Lisinopril (Lisinopril) 2.5 Mg Tablet, 2.5 MG PO HS, (Reported) Entered as Reported by: HUBERT LI on 02/11/22809 Last Action: Converted Pantoprazole Sodium (Pantoprazole Sodium) 40 Mg Tablet.dr, 40 MG PO DAILY, (Reported) Entered as Reported by: HUBERT LI on 02/11/22809 Last Action: Continued Potassium Chloride (Potassium Chloride) 20 Meq Tablet.er, 20 MEQ PO DAILY, (Reported) Entered as Reported by: HUBERT LI on 02/11/22809 Last Action: Converted Prednisone (Prednisone) 10 Mg Tab.ds.pk, 10 MG PO DAILY Prescribed by: DION SÁNCHEZ on 05/13/22 1127 Umeclidinium Brm/Vilanterol Tr (Anoro Ellipta 62.5-25 Mcg INH) 62.5 Mcg-25 Mcg/Actuation Blst.w.dev, 1 EACH IH DAILY, (Reported) Entered as Reported by: HUBERT LI on 02/11/22 0810 Last Action: Converted Discontinued Medications Clopidogrel Bisulfate (Clopidogrel) 75 Mg Tablet, 75 MG PO DAILY Discontinued Reason: Duplicate Order Prescribed by: GAIL SANCHES on 03/21/22 0811 Last Action: Discontinued Gabapentin (Gabapentin) 100 Mg Capsule, 100 MG PO Q8H, (Reported) Discontinued Reason: No Longer Taking Entered as Reported by: ADELA LEDESMA on 04/17/22 0915 Last Action: Discontinued Review of Systems Review of Systems Constitutional: see HPI (CHARLENE COTE APRN) Past Odhxzvj-Ehrbkr-Twifml Hx Patient Social History Tobacco Use?: Yes Tobacco type used: Cigarettes Smoking Status: Current Everyday Smoker Use of E-Cig and/or Vaping dev: No Substance use?: No Alcohol Use?: No Pt feels they are or have been: No (CHARLENE COTE APRN) Immunizations Up To Date Tetanus Booster (TDap): Less than 5yrs PED Vaccines UTD: Yes Influenza Vaccine Up-to-Date: Yes; Up-to-Date (CHARLENE COTE APRN) Seasonal Allergies Seasonal Allergies: No (CHARLENE COTE APRN) Past Medical History Surgeries: Yes (CARDIAC SX, PINS IN R. WRIST, KNEE SURGERGY) CABG, Coronary Stent, Orthopedic, Pacemaker, Prostatectomy, Tonsillectomy, Valve Replacement Respiratory: Yes COPD Currently Using CPAP: No Currently Using BIPAP: No Cardiac: Yes (CATHS, BYPASS, STENTS, BALLOONS, LAST UT--NON-STEMI 09/2015) Atrial Fibrillation, Coronary Artery Disease, Valvular Heart Disease Neurological: Yes (hx of brain bleed) Traumatic Brain Injury Reproductive Disorders: No Sexually Transmitted Disease: No HIV/AIDS: No Genitourinary: Yes Benign Prostatic Hyperpl Gastrointestinal: Yes Gastroesophageal Reflux Musculoskeletal: Yes Chronic Back Pain Endocrine: Yes ("DIET CONROLLED" ) Diabetes, Non-Insulin dep HEENT: No Hearing Impairment: Denies Cancer: No Psychosocial: Yes Anxiety, Depression Integumentary: No Blood Disorders: No Adverse Reaction/Blood Tranf: No (CHARLENE COTE APRN) Family Medical History Completed stroke 19 FATHER Diabetes mellitus 19 FATHER 19 MOTHER Myocardial infarction 19 MOTHER No Pertinent Family Hx (CHARLENE COTE APRN) Physical Exam Vital Signs - First Documented 05/11/22 05/11/22 19:57 21:02 Temp 36.7 Pulse 77 Resp 20 B/P (MAP) 168/69 (102) Pulse Ox 98 O2 Delivery Room Air O2 Flow Rate 0 FiO2 21 (ENMANUEL DOBSON MD) Capillary Refill : Less Than 3 Seconds (CHARLENE COTE APRN) Height: 5'9.00" Weight: 204lbs. 3.0oz. 92.154407he; 32.00 BMI Method:Stated General Appearance: WD/WN, no apparent distress Neck: supple, normal inspection Respiratory: no respiratory distress, no accessory muscle use, decreased breath sounds, wheezing Cardiovascular: regular rate, rhythm, no edema, no gallop, no JVD, no murmur Gastrointestinal: non tender, distended Extremities: normal range of motion, normal inspection Neurologic/Psychiatric: alert, normal mood/affect Skin: normal color, warm/dry (CHARLENE COTE APRN) Progress/Results/Core Measures Suspected Sepsis SIRS Temperature: Pulse: 77 Respiratory Rate: 20 Laboratory Tests 05/11/22 20:16: White Blood Count 8.4 Blood Pressure 168 /69 Mean: 102 Laboratory Tests 05/11/22 20:16: Creatinine 1.59H, INR Comment 1.1, Platelet Count 137, Total Bilirubin 0.6 05/12/22 05:53: Creatinine 1.54H, Total Bilirubin 0.6 (CHARLENE COTE APRN) Results/Orders Lab Results Laboratory Tests Test 05/11/22 20:16 05/12/22 05:53 Range/Units White Blood Count 8.4 4.3-11.0 10^3/uL Red Blood Count 3.81 L 4.30-5.52 10^6/uL Hemoglobin 12.1 L 13.3-17.7 g/dL Hematocrit 37 L 40-54 % Mean Corpuscular Volume 96 80-99 fL Mean Corpuscular Hemoglobin 32 25-34 pg Mean Corpuscular Hemoglobin Concent 33 32-36 g/dL Red Cell Distribution Width 14.7 H 10.0-14.5 % Platelet Count 137 130-400 10^3/uL Mean Platelet Volume 9.2 9.0-12.2 fL Immature Granulocyte % (Auto) 0 % Neutrophils (%) (Auto) 67 42-75 % Lymphocytes (%) (Auto) 21 12-44 % Monocytes (%) (Auto) 7 0-12 % Eosinophils (%) (Auto) 4 0-10 % Basophils (%) (Auto) 1 0-10 % Neutrophils # (Auto) 5.6 1.8-7.8 10^3/uL Lymphocytes # (Auto) 1.7 1.0-4.0 10^3/uL Monocytes # (Auto) 0.6 0.0-1.0 10^3/uL Eosinophils # (Auto) 0.4 H 0.0-0.3 10^3/uL Basophils # (Auto) 0.1 0.0-0.1 10^3/uL Immature Granulocyte # (Auto) 0.0 0.0-0.1 10^3/uL Percent Immature Platelet Fraction 2.9 0.0-7.6 % Prothrombin Time 14.9 H 12.2-14.7 SEC INR Comment 1.1 0.8-1.4 Activated Partial Thromboplast Time 30 24-35 SEC Sodium Level 136 135-145 MMOL/L Potassium Level 4.0 3.6-5.0 MMOL/L Chloride Level 101 98-107 MMOL/L Carbon Dioxide Level 23 21-32 MMOL/L Anion Gap 12 5-14 MMOL/L Blood Urea Nitrogen 17 7-18 MG/DL Creatinine 1.59 H 0.60-1.30 MG/DL Estimat Glomerular Filtration Rate 47 BUN/Creatinine Ratio 11 Glucose Level 171 H 70-105 MG/DL Calcium Level 8.6 8.5-10.1 MG/DL Corrected Calcium 9.0 8.5-10.1 MG/DL Magnesium Level 2.0 1.6-2.4 MG/DL Total Bilirubin 0.6 0.1-1.0 MG/DL Aspartate Amino Transf (AST/SGOT) 15 5-34 U/L Alanine Aminotransferase (ALT/SGPT) 17 0-55 U/L Alkaline Phosphatase 105 40-136 U/L Myoglobin 53.9 10.0-92.0 NG/ML Troponin I < 0.028 <0.028 NG/ML B-Type Natriuretic Peptide 66.8 <100.0 PG/ML Total Protein 8.3 H 6.4-8.2 GM/DL Albumin 3.5 3.2-4.5 GM/DL (ENMANUEL DOBSON MD) Medications Given in ED Current Medications Medications Dose Ordered Sig/Héctor Route Start Time Stop Time Status Last Admin Dose Admin Albuterol/ Ipratropium 3 ml ONCE ONCE INH 05/11/22 20:45 05/11/22 20:46 DC 05/11/22 21:01 3 ML Alprazolam 1 mg ONCE ONCE PO 05/11/22 22:30 05/11/22 22:32 DC 05/11/22 22:53 1 MG Apixaban 5 mg ONCE ONCE PO 05/11/22 22:30 05/11/22 22:32 DC 05/11/22 22:50 5 MG Azithromycin 500 mg/Sodium Chloride 250 ml @ 250 mls/hr ONCE ONCE IV 05/11/22 23:30 05/12/22 00:29 DC 05/11/22 23:55 250 MLS/HR Ceftriaxone Sodium/Dextrose 50 ml @ 100 mls/hr ONCE ONCE IV 05/11/22 22:00 05/11/22 22:29 DC 05/11/22 22:51 100 MLS/HR Methylprednisolone Sodium Succinate 125 mg ONCE ONCE IVP 05/11/22 20:45 05/11/22 20:46 DC 05/11/22 20:39 125 MG (ENMANUEL DOBSON MD) Vital Signs/I&O 05/11/22 05/11/22 05/11/22 05/12/22 19:57 21:02 21:54 00:15 Temp 36.7 Pulse 77 Resp 20 B/P (MAP) 168/69 (102) Pulse Ox 98 94 96 O2 Delivery Room Air Nasal Cannula Nasal Cannula O2 Flow Rate 0 2.00 2.00 FiO2 21 05/12/22 03:40 Pulse Ox 93 O2 Delivery Nasal Cannula O2 Flow Rate 2.00 05/12/22 00:00 Intake Total 50 ml Balance 50 ml (ENMANUEL DOBSON MD) Vital Signs/I&O Capillary Refill : Less Than 3 Seconds (CHARLENE COTE APRN) Blood Pressure Mean: 102 Progress Note : Progress Note Patient seen and evaluated, resting in bed, no acute distress. Based on exam and symptoms, concern for COPD exacerbation, CHF exacerbation, pneumonia. Work- up initiated including CBC, CMP, troponin, magnesium, coags, myoglobin, EKG, chest x-ray. DuoNeb and Solu-Medrol ordered. Labs reviewed. CBC shows normal WBC 8.4, decreased hemoglobin 12.1, decreased hematocrit at 37, labs from 04/17 show hemoglobin 13.1, and hematocrit of 39. CMP shows creatinine 1.59, GFR 47. Labs from 04/17 showed creatinine 1.48, GFR 51. Glucose today 171, myoglobin normal at 53.9, troponin normal. BNP normal at 66.8. PT slightly elevated 14.9. Chest x-ray shows developing congestive heart failure, and some scattered infiltrate in the lower lobes, right middle lobe and left lingula. Rocephin and azithromycin ordered. We will seek admission due to pneumonia and hypoxia at 89% on room air. Oxygen saturation upper 90s after placed on 2 L of O2 via nasal cannula. We have no beds available upstairs, Dr. Sánchez does not want to admit at this time to here or to [place]. She will reevaluate patient in the morning for admission once beds available. Home medications ordered. Nebulizer treatments ordered for patient to receive overnight. (CHARLENE COTE APRN) Progress Note : Time: 06:24 Progress Note Patient re-assessed at 0624. Resting comfortably, lying on his right side with O2 at 2L in place - sats 94%. Lungs auscultated, coarse and wheezy throughout. No distress noted. Oxygen turned off and patient's sats dropped to 89/90%. HR in the 70's and BP good. Patient states that he does not use oxygen at home. Apparently prior provider discussed with Dr Sánchez for admission earlier in the evening - patient held in ED pending bed availability and reassessment. Labs reviewed, nothing overly concerning on lab eval. CXR showed (per radiologist) developing infiltrates and CHF developing. Will discuss with Dr Sánchez ([facility] hospitalist) this morning. 0632 - discussed with Dr Sánchez - she will placed que'ed orders. Admit obs to medical. Dr Sánchez will reach out to Dr Sanches and she will order morning labs. (ENMANUEL DOBSON MD) ECG Initial ECG Impression Date: May 11, 2022 Initial ECG Impression Time: 20:20 Initial ECG Rate: 72 Initial ECG Rhythm: Normal Sinus Initial ECG Intervals: Normal Initial ECG Impression: Nonspecific Changes Initial ECG Comparisson: Unchanged (CHARLENE COTE APRN) Diagnostic Imaging Diagonstic Imaging: Xray Plain Films/CT/US/NM/MRI: chest Comments [facility] [place], [place] NAME: KARINA BRASHER MED REC#: [id number] PT STATUS: REG ER : 1950 PHYSICIAN: ANDRE MARTE MD ADMIT DATE: 05/11/22/ER Signed Date of Exam:05/11/22 CHEST 1 VIEW, AP/PA ONLY INDICATION: 71-year-old male presents with chest pain. COMPARISONS: 03/20/2022 FINDINGS: Single view of the chest shows the cardiac contour to be upper limits of normal. There is moderate central venous congestion. Scattered atelectatic infiltrates are seen in the lower lobes and left lingula and right middle lobe. There is a previous median sternotomy for a CABG. There is a dual-chamber left-sided ICD. An old healed deformity right clavicular fracture again noted. IMPRESSION: 1. Developing congestive heart failure. Some scattered infiltrates are seen in the lower lobes, right middle lobe and left lingula. 2. Previous median sternotomy for a CABG. Dictated by: Dictated on workstation # [id number] Dict: 05/11/222026 Trans: 05/11/222103 RO [id number] Interpreted by: GREGORY RONDON MD Electronically signed by: GREGORY RONDON MD 05/11/222103 (CHARLENE COTE APRN) Departure Communication (Admissions) Time/Spoke to Admitting Phy: 06:[address] Sánchez - will do que'ed orders. (ENMANUEL DOBSON MD) Impression Primary Impression: COPD exacerbation Additional Impression: Pneumonia Qualified Codes: J18.9 - Pneumonia, unspecified organism Disposition: ADMITTED INPATIENT Condition: Stable Admissions Decision to Admit Reason: Admit from ER (General) Decision to Admit/Date: May 12, 2022 Time/Decision to Admit Time: 06:33 (ENMANUEL DOBSON MD) Departure-Patient Inst. Referrals: LUCAS WILSON DO (PCP/Family) Primary Care Physician Scripts Prednisone (Prednisone) 10 Mg Tab.ds.pk 10 MG PO DAILY, #21 EA Take 6 tabs(60mg)daily,decrease by 1 tab(10MG)daily. Prov: DION SÁNCHEZ DO 05/13/22 Cefdinir (Cefdinir) 300 Mg Capsule 300 MG PO BID, #10 CAP Prov: DION SÁNCHEZ DO 05/13/22 ATTENDING PHYSICIAN NOTE: I was physically present as attending physician in the emergency department during the majority of care of this patient. Care was transitioned to Dr. Dobson at shift change. This case was discussed with me by Charlene Cote, EDWIN. I was available for any needs in the interim while patient was awaiting admission. Patient was reevaluated by Dr. Dobson after shift change when inpatient beds became available. See her notes for further details. I did not personally examine or interview this patient, and I was not otherwise directly involved in the decision making or delivery of care for this patient. (ANDRE MARTE MD) Copy Copies To 1: LUCAS WILSON BRITTANY R APRN May 11, 2022 20:43 ENMANUEL DOBSON MD May 12, 2022 06:28 ANDRE MARTE MD May 16, 2022 05:48
[2022-05-11] MEDS ORDERED: methylPREDNISolone 125 MG (Solu-MEDROL) VIAL IVP ONE (20:45)
[2022-05-11] MEDS ORDERED: RT-ALBUTEROL/IPRATROPIUM 3 ML (DUONEB) VIAL INH ONE (20:45)
[2022-05-11 20:50] LABS: ALBUMIN 3.5 GM/DL (3.2-4.5); BILIRUBIN,TOTAL 0.6 MG/DL (0.1-1.0); CALCIUM 8.6 MG/DL (8.5-10.1); CREATININE SERUM 1.59 MG/DL (0.60-1.30); TOTAL PROTEIN 8.3 GM/DL (6.4-8.2)
[2022-05-11] MEDS ORDERED: cefTRIAXone 1 GM PRE-MIX 50 ML IV ONE (22:00)
[2022-05-11] MEDS ORDERED: APIXABAN 5 MG (ELIQUIS) TABLET PO ONE (22:30)
[2022-05-11] MEDS ORDERED: ALPRAZolam 1 MG (XANAX) TAB PO ONE (22:30)
[2022-05-11] MEDS ORDERED: eZETimibe 10 MG (ZETIA) TABLET PO SCH (23:15)
[2022-05-11] MEDS ORDERED: AZITHROMYCIN INJECTION 500 MG in NS (IVPB) 250 ML IV ONE (23:30)
[2022-05-12] MEDS: RT-ALBUTEROL SULF 2.5 MG/3 ML PRE-MIX VIAL INH SCH ×2 (00:41→03:40)
[2022-05-12] MEDS ORDERED: RT-ALBUTEROL SULF 2.5 MG/3 ML PRE-MIX VIAL INH SCH (03:00)
[2022-05-12 06:37] LABS: CHOLESTEROL 148 MG/DL (< 200); HDL CHOLESTEROL 36 MG/DL (40-60); TRIGLYCERIDES 66 MG/DL (<150); VLDL CHOLESTEROL 13 MG/DL (5-40)
[2022-05-12] MEDS ORDERED: polyethylene glycoL POWDER 17 GM (MIRALAX) PACK PO PRN (08:00)
[2022-05-12] MEDS ORDERED: MILK OF MAGNESIA 400 MG/5 ML 30 ML UDC PO PRN (08:00)
[2022-05-12] MEDS ORDERED: diphenhydrAMINE 50 MG/ML INJ (BENADRYL) IVP PRN (08:00)
[2022-05-12] MEDS ORDERED: ONDANSETRON 4 MG (ZOFRAN) ORAL DISSOLVE TAB PO PRN (08:00)
[2022-05-12] MEDS ORDERED: MELATONIN 3 MG TABLET PO PRN (08:00)
[2022-05-12] MEDS ORDERED: ANTACID SUSP 30 ML UDC (MYLANTA) PO PRN (08:00)
[2022-05-12] MEDS ORDERED: LACTULOSE SYRUP 10GM/15ML (ENULOSE) 30ML UDC PO PRN (08:00)
[2022-05-12] MEDS ORDERED: BISACODYL 10 MG SUPP (DULCOLAX) PR PRN (08:00)
[2022-05-12] MEDS ORDERED: HYDROmorphone 2 MG/ML VIAL (DILAUDID) IV PRN (08:00)
[2022-05-12] MEDS ORDERED: CALCIUM CARBONATE 500 MG (TUMS) TAB.CHEW PO PRN (08:00)
[2022-05-12] MEDS ORDERED: ONDANSETRON 4 MG/2 ML (SDV) Z0FRAN IV PRN (08:00)
[2022-05-12] MEDS ORDERED: diphenhydrAMINE 25 MG TAB (BENADRYL) PO PRN (08:00)
[2022-05-12] MEDS ORDERED: ACETAMINOPHEN 325 MG TABLET PO PRN (08:00)
--- NOTE | 2022-05-12 08:10 | Diagnostic Imaging Report ---
INDICATION: Pneumonia AP view of chest is obtained with comparison made to study of 05/11/2022. There is cardiomegaly similar to previous study. There is mild pulmonary venous congestion. There is slight interval increase in bilateral airspace disease with linear atelectasis in the right perihilar region. IMPRESSION: Increasing bilateral pulmonary opacity likely represents edema. This could be on the basis of inflammation or congestive heart failure. Clinical correlation and radiographic followup would be of use. Dictated by: Dictated on workstation # [id number]
[2022-05-12 08:30] VITALS: BP 149/72
[2022-05-12] MEDS ORDERED: AZITHROMYCIN INJECTION 500 MG in NS (IVPB) 250 ML IV SCH (09:00)
[2022-05-12 09:10] LABS: ABG BASE EXCESS -5.1 MMOL/L (-2.5-2.5); ABG OXYGEN SATURATION 94 % (94-100); ABG PCO2 40 MMHG (35-45); ABG PO2 69 MMHG (79-93); ABG TCO2 21.2 MMOL/L (21.0-31.0)
[2022-05-12 09:15] LABS: ABG PH 7.32 (7.37-7.43); ALLENS TEST YES-POS; INSPIRED O2 RA; PATIENT TEMP 37; VENTILATOR NO
[2022-05-12] MEDS: NICOTINE 21 MG (NICODERM) PATCH TD SCH ×2 (09:20→21:49)
[2022-05-12] MEDS: DOCUSATE SODIUM 100 MG (COLACE) CAP PO SCH ×2 (09:25→19:40)
[2022-05-12] MEDS: SENNOSIDES 8.6 MG (SENOKOT) TAB PO SCH ×2 (09:26→19:41)
[2022-05-12] MEDS: APIXABAN 5 MG (ELIQUIS) TABLET PO SCH ×2 (09:26→19:40)
[2022-05-12] MEDS: NICOTINE PATCH REMOVAL TP SCH (09:26)
--- NOTE | 2022-05-12 09:54 | Consultation-Cardiology ---
HPI-Cardiology Cardiology Consultation Date of Consultation 05/12/22 Date of Admission Time Seen by Provider: 08:30 Indication: CHF HPI Patient is a 71 year old male with hx of CAD, CHF, COPD, PVD. Presented to the ER with complaints of increased dyspena and weight gain over the past 48 hours. Denies any chest pain or dizziness. Reports compliance to medications Home Medications & Allergies Allergies: Coded Allergies: morphine (Unverified Adverse Reaction, Unknown, "MAKES ME CRAZY", 09/04/13) Home Medication List Reviewed: Yes ZNU-Bjwcje-Radglt Hx Patient Social History Smoking Status: Current Everyday Smoker Type Used: Cigarettes 2nd Hand Smoke Exposure: Yes Recent Hopitalizations: No Have you traveled recently?: No Alcohol Use?: No Immunizations Up To Date Tetanus Booster (TDap): Less than 5yrs Date of Pneumonia Vaccine: Oct 31, 2008 Date of Influenza Vaccine: Dec 04, 2021 Past Medical History CAD, CHF Family Medical History Significant Family History: No Pertinent Family Hx Family History: Completed stroke 19 FATHER Diabetes mellitus 19 FATHER 19 MOTHER Myocardial infarction 19 MOTHER Review of Systems-General Review of Systems Constitutional: see HPI EENTM: see HPI, no symptoms reported Respiratory: see HPI, dyspnea on exertion, short of breath Cardiovascular: see HPI; No chest pain; edema, Hx of Intervention; No palpitations Gastrointestinal: see HPI Genitourinary: see HPI Musculoskeletal: see HPI Reviewed Test Results Reviewed Test Results Lab Laboratory Tests 05/11/22 20:16: White Blood Count 8.4, Red Blood Count 3.81L, Hemoglobin 12.1L, Hematocrit 37L, Mean Corpuscular Volume 96, Mean Corpuscular Hemoglobin 32, Mean Corpuscular Hemoglobin Concent 33, Red Cell Distribution Width 14.7H, Platelet Count 137, Mean Platelet Volume 9.2, Immature Granulocyte % (Auto) 0, Neutrophils (%) (Auto) 67, Lymphocytes (%) (Auto) 21, Monocytes (%) (Auto) 7, Eosinophils (%) (Auto) 4, Basophils (%) (Auto) 1, Neutrophils # (Auto) 5.6, Lymphocytes # (Auto) 1.7, Monocytes # (Auto) 0.6, Eosinophils # (Auto) 0.4H, Basophils # (Auto) 0.1, Immature Granulocyte # (Auto) 0.0, Percent Immature Platelet Fraction 2.9, Prothrombin Time 14.9H, INR Comment 1.1, Activated Partial Thromboplast Time 30, Sodium Level 136, Potassium Level 4.0, Chloride Level 101, Carbon Dioxide Level 23, Anion Gap 12, Blood Urea Nitrogen 17, Creatinine 1.59H, Estimat Glomerular Filtration Rate 47, BUN/Creatinine Ratio 11, Glucose Level 171H, Calcium Level 8.6, Corrected Calcium 9.0, Magnesium Level 2.0, Total Bilirubin 0.6, Aspartate Amino Transf (AST/SGOT) 15, Alanine Aminotransferase (ALT/SGPT) 17, Alkaline Phosphatase 105, Myoglobin 53.9, Troponin I < 0.028, B-Type Natriuretic Peptide 66.8, Total Protein 8.3H, Albumin 3.5 05/12/22 05:53: Triglycerides Level 66, Cholesterol Level 148, LDL Cholesterol Direct 104, VLDL Cholesterol 13, HDL Cholesterol 36L 05/12/22 09:00: Blood Gas Puncture Site RR, Blood Gas Patient Temperature 37, Arterial Blood pH 7.32*L, Arterial Blood Partial Pressure CO2 40, Arterial Blood Partial Pressure O2 69L, Arterial Blood HCO3 20L, Arterial Blood Total CO2 21.2, Arterial Blood Oxygen Saturation 94, Arterial Blood Base Excess -5.1L, Archie Test YES-POS, Blood Gas Ventilator Setting NO, Blood Gas Inspired Oxygen RA Physical Exam Physical Exam Vital Signs Vital Signs - First Documented 05/11/22 05/11/22 19:57 21:02 Temp 36.7 Pulse 77 Resp 20 B/P (MAP) 168/69 (102) Pulse Ox 98 O2 Delivery Room Air O2 Flow Rate 0 FiO2 21 Capillary Refill : Less Than 3 Seconds Height, Weight, BMI Height: 5'9.00" Weight: 204lbs. 3.0oz. 92.935586es; 32.65 BMI Method:Stated General Appearance: No Apparent Distress, WD/WN HEENT: PERRL/EOMI, Normal ENT Inspection Neck: Full Range of Motion, Normal Inspection, Non Tender, Supple Respiratory: Chest Non Tender, Decreased Breath Sounds, Rhonci Cardiovascular: Regular Rate, Rhythm, No Gallop, No JVD, Other (trace edema) Gastrointestinal: Non Tender, Soft A/P-Cardiology Admission Diagnosis AE COPD AE CHF CAD PVD Assessment/Plan AE COPD, management per medical services Acute on chronic diastolic CHF, most recent 2D Echo done December 2021 showing severe concentric hypertrophy, EF 50-55%. Mechanical prosthesis in the mitral valve position, peak gradient across prosthetic valve is 6mmHg, mitral valve area 2.29cm. Responding well to aggressive diuresis. Continue with diuretics and continue to monitor Coronary artery disease History of CABG x1 done in 2004 PTCA and stenting 2003 prior to the CABG Another stent done to the ramus intermedius in 2009 using Xience 2.5 x 23 mm April 2011 2 stents placed 3.25 x 12 mm to the LAD and 3.0 to the ramus intermedius Cardiac catheterization done in October 2011 with in-stent restenosis in the ramus intermedius had a balloon angioplasty with a 3 x 20 Quantum balloon, patent VIDAL to the distal LAD, patent stent to the proximal circumflex artery, large dominant artery. Small nondominant right Cardiac catheterization done in September 2015 with patent stent in the proximal LAD, 2 stents in the proximal ramus intermedius and stent to the proximal circumflex artery". Increasing vessel disease distally. VIDAL was patent the first OM has severe ostial stenosis very small arteries. Cardiac catheterization was done on February 11, 2022 which showed patent VIDAL to the LAD, patent stents in the proximal LAD ramus intermedius and circumflex artery with moderate small vessel disease distally, dominant circumflex artery, nondominant right coronary artery with mild to moderate disease. Normal left ventricular pressure, total occlusion of the right SFA reconstructed by collaterals above the popliteal artery Patient had mitral valve replacement and tricuspid valve repair done in December 2020 Peripheral arterial disease, has been having leg cramps on and off, reporting improvement. LILA was abnormal done on March 04, 2022 and it was 0.59 on the right and 0.49 on the left with abnormal TBI bilaterally around 0.35. I am planning to arrange for peripheral angiogram with possible angioplasty and stenting to the lower extremities. Patient underwent peripheral angiogram on March 20, 2022 with complex intervention and stenting of the right SFA using 3 overlapping stents Supera 6 x 150 distally followed by Supera 6 x 150 followed by absolute Pro 7 x 80 with excellent results. Patient underwent peripheral angiogram on April 17, 2022 with atherectomy and deployment of Supera 6 x 120 to the left SFA without any complication with excellent results. History of dual-chamber pacemaker implantation done by Dr. Hicks in January 2021. Last interrogation was done on March 05, 2022. Good sensing and capture activity, few episodes of nonsustained ventricular tachycardia. History of chest pain, reporting improvement, generalized fatigue and loss of energy Paroxysmal atrial fibrillation, had atrial fibrillation in 2020, has been maintained on amiodarone 200 mg daily and Eliquis 5 mg twice daily Mild bilateral carotid stenosis, underwent CTA head and neck in December 2020. Hypertension, elevated blood pressure today Reporting excellent blood pressure control at home. Hyperlipidemia, maintained on Lipitor 80 mg daily, evaluate lipid profile and metabolic profile History of syncope, no further episodes were reported Tobaccoism, active smoker still smoking. Educated on smoking cessation History of borderline diabetes, controlled by diet History of intracranial bleed in the remote past secondary to trauma. Thank you for allowing us to participate in the management of Mr. Keys. This is Jolie Mobley PA-C, as a scribe for Dr. Martell Patient was seen and evaluated with Jolie, I interviewed and examined the patient, discussed the management plan and agree with the current scribed note Overall patient appears to be improving and responding to aggressive diuresis Continue to monitor Restart home medications JOLIE GUILLEN May 12, 2022 09:54 GAIL LOVETT MD May 12, 2022 11:50
[2022-05-12 09:58] VITALS: BP 149/72
[2022-05-12 11:27] LABS: EOSINOPHILS % (AUTO) 0 % (0-10); HEMOGLOBIN 11.9 g/dL (13.3-17.7); MEAN CORPUSCULAR VOLUME 95 fL (80-99); MONOCYTES % (AUTO) 2 % (0-12)
[2022-05-12 11:28] VITALS: BP 149/82
[2022-05-12 11:29] LABS: BASOPHILS % (AUTO) 0 % (0-10); HEMATOCRIT 36 % (40-54); LYMPHOCYTES # (AUTO) 1.7 10^3/uL (1.0-4.0); LYMPHOCYTES % (AUTO) 14 % (12-44); MEAN CORPUSCULAR HEMOGLOBIN 32 pg (25-34); MEAN CORPUSCULAR HGB CONC 33 g/dL (32-36); MEAN PLATELET VOLUME 9.6 fL (9.0-12.2); MONOCYTES # (AUTO) 0.2 10^3/uL (0.0-1.0); NEUTROPHILS # (AUTO) 9.6 10^3/uL (1.8-7.8); NEUTROPHILS % (AUTO) 83 % (42-75); PLATELET COUNT 118 10^3/uL (130-400); WHITE BLOOD COUNT 11.5 10^3/uL (4.3-11.0)
[2022-05-12 11:33] LABS: ALBUMIN 3.6 GM/DL (3.2-4.5)
[2022-05-12 11:34] LABS: POTASSIUM 4.5 MMOL/L (3.6-5.0)
[2022-05-12 11:35] LABS: CALCIUM 8.5 MG/DL (8.5-10.1)
[2022-05-12 11:36] LABS: TOTAL PROTEIN 7.8 GM/DL (6.4-8.2)
[2022-05-12 11:38] LABS: BILIRUBIN,TOTAL 0.6 MG/DL (0.1-1.0)
[2022-05-12 11:40] LABS: CREATININE SERUM 1.54 MG/DL (0.60-1.30)
[2022-05-12] MEDS: methylPREDNISolone 40 MG/ML (Solu-MEDROL) VIAL IV SCH ×3 (12:10→22:28)
[2022-05-12] MEDS: RT-ALBUTEROL HFA 8.5 GM INHALER IH SCH ×2 (14:25→21:02)
--- NOTE | 2022-05-12 14:43 | History & Physical-Hospitalist ---
BOAZPK Mable 05/12/22 1443: History of Present Illness HPI/Chief Complaint This is a 71 y/o M with a PMH significant for CHF, COPD, CAD, PAD, every-day smo maggie, and DM who presented to the ED yesterday after increasing SOB with exertion and ~21 lb weight gain since this past (5 days ago). The patient reports that he is always short of breath at baseline despite having inhalers at home that he uses. He says over the past several days he has noticed his SOB getting worse and yesterday he felt like going outside for a walk and as soon as he got outside he felt like he needed to sit down. After this he attempted to go to the restroom back inside and said he was so SOB he was afraid he wasn't going to make it and decided he needed to go to the hospital. He says he attempted to use his rescue inhaler at home but it did not help. He uses a U meclidinium/Vilanterol inhaler and albuterol inhaler PRN per med rec but he is unsure which one he tried.He reports he has a "smokers cough" at baseline and it has not increased. He says he has had increased sputum production which is clear to green. He follows with Dr. Sanches and recently had interventions for his PAD with stents to both legs, the most recent being two weeks ago. He denies any issues other than surgical site pain post-operatively and denies recent fever, chills, N/V/D, chest pain, palpitations, or other new symptoms. The patient was managed for an acute COPD exacerbation with coinciding exacerbation of CHF in the ER and admitted to the floor. Upon exam this AM, he is sitting upright in his chair and is shaky. He says he really wants a cigarrette and no one had been able to give him a nicotine patch yet and is thinking about going outside to smoke. He says his work of breathing is improved. He is not on his O2 while in this chair and says he has felt worse since being off it when he came up to his inpatient room. He denies any other discomfort or pain at this time. Source: patient, RN/MD Exam Limitations: no limitations Date Seen 05/12/22 Time Seen by a Provider: 08:50 Attending Physician Barnhart,Leighton V DO PCP Admitting Physician: Dion Sánchez DO Attending Physician: Dion Sánchez DO Referring Physician Date of Admission May 12, 2022 at 07:29 Home Medications & Allergies Home Medications Reviewed patient Home Medication Reconciliation performed by pharmacy medication reconciliations fresh foods technician and/or nursing. Patients Allergies have been reviewed. Allergies Allergies Coded Allergies morphine (Unverified Adverse Reaction, Unknown, "MAKES ME CRAZY", 09/04/13) Past Qfpfeqq-Bmzahd-Icwpen Hx Patient Social History Tobacco Use?: Yes Tobacco type used: Cigarettes Smoking Status: Current Everyday Smoker Smokeless Tobacco Frequency: Current Everyday User Use of E-Cig and/or Vaping dev: No Substance use?: No Alcohol Use?: No Pt feels they are or have been: No Immunizations Up To Date Date of Influenza Vaccine: Dec 04, 2021 Tetanus Booster (TDap): Less Than 5 Years Hepatitis A: No Hepatitis B: Yes PED Vaccines UTD: Yes Date of Pneumonia Vaccine: Oct 31, 2008 Seasonal Allergies Seasonal Allergies: No Current Status Advance Directives: No Communicates: Verbally Primary Language: Citizen Of [place] Preferred Spoken Language: Citizen [place] Is interpretation needed?: No Past Medical History Surgeries: CABG, Coronary Stent, Orthopedic, Pacemaker, Prostatectomy, Tonsille ctomy, Valve Replacement COPD Currently Using CPAP: No Currently Using BIPAP: No Atrial Fibrillation, Coronary Artery Disease, Valvular Heart Disease Traumatic Brain Injury Sexually Transmitted Disease: No HIV/AIDS: No Benign Prostatic Hyperpl Gastroesophageal Reflux Chronic Back Pain Diabetes, Non-Insulin dep Hearing Impairment: Denies Anxiety, Depression Blood Disorders: No Adverse Reaction/Blood Tranf: No Family Medical History Completed stroke 19 FATHER Diabetes mellitus 19 FATHER 19 MOTHER Myocardial infarction 19 MOTHER No Pertinent Family Hx Review of Systems Constitutional: No chills, No diaphoresis, No fever; weight gain EENTM: no symptoms reported Respiratory: cough, dyspnea on exertion, orthopnea, short of breath Cardiovascular: no symptoms reported; No edema, No syncope Gastrointestinal: no symptoms reported Genitourinary: no symptoms reported Musculoskeletal: no symptoms reported Skin: no symptoms reported Psychiatric/Neurological: No Symptoms Reported Physical Exam Physical Exam Vital Signs Vital Signs - First Documented 05/11/22 05/11/22 19:57 21:02 Temp 36.7 Pulse 77 Resp 20 B/P (MAP) 168/69 (102) Pulse Ox 98 O2 Delivery Room Air O2 Flow Rate 0 FiO2 21 Capillary Refill : Less Than 3 Seconds Height, Weight, BMI Height: 5'9.00" Weight: 204lbs. 3.0oz. 92.158179zi; 32.65 BMI Method:Stated General Appearance: Anxious, Mild Distress HEENT: PERRL/EOMI, Pharynx Normal Neck: Full Range of Motion, Non Tender, Supple Respiratory: Crackles, Wheezing, Other (Coarse crackles and wheezing throughout lung leung. Good air movement.) Cardiovascular: Regular Rate, Rhythm, No Edema Gastrointestinal: Non Tender, Soft Back: Normal Inspection Extremity: Non Tender, No Calf Tenderness, No Pedal Edema Neurologic/Psychiatric: Alert, Oriented x3 Skin: Normal Color, Warm/Dry Lymphatic: No Adenopathy Results Results/Procedures Labs Laboratory Tests 05/11/22 20:16 05/12/22 05:53 05/12/22 11:20 Patient resulted labs reviewed. Imaging: Reviewed Imaging Films, Reviewed Imaging Report Imaging NAME: [facility]AR[facility] REC#: [id number] PT STATUS: ADM IN : 1950 PHYSICIAN: DION SÁNCHEZ DO ADMIT DATE: 05/12/22 Signed Date of Exam:05/12/22 CHEST 1 VIEW, AP/PA ONLY INDICATION: Pneumonia AP view of chest is obtained with comparison made to study of 05/11/2022. There is cardiomegaly similar to previous study. There is mild pulmonary venous congestion. There is slight interval increase in bilateral airspace disease with linear atelectasis in the right perihilar region. IMPRESSION: Increasing bilateral pulmonary opacity likely represents edema. This could be on the basis of inflammation or congestive heart failure. Clinical correlation and radiographic followup would be of use. Dictated by: Dictated on workstation # [id number] Dict: 05/12/22 0808 Trans: 05/12/22940 [facility] [id number] Interpreted by: DARIN CREWS MD Electronically signed by: DARIN CREWS MD 05/12/22 0941 Assessment/Plan Assessment and Plan Assessment: This is a 71 y/o male who presented with increased SOB and admitted for COPD/CHF exacerbation AHRF SOB 2/2 Acute COPD exacerbation and CHF exacerbation Metabolic acidosis, respiratory acidosis -Cardiology consulted and managing CHF side given extensive cardiac history; appreciate recs -Echo in 01/13 with EF 50-55% with diastolic dysfunction/concentric hypertrophy -CXR c/w pulmonary edema; will get repeat CXR in AM to evaluate status AB.32/40/69/20 - Mild HAGMA; possibly uremia vs lactic acidosis given hypoxia (lactic acid not checked on admit) -Anion Gap 11 -Delta Gap of 1 -Expected Bicarb: 23 -underlying secondary metabolic acidosis - likely 2/2 CKD -Expected CO2: 28-32 -Respiratory acidosis present -Lasix BID - pt responding well to diuresis thus far -Albuterol scheduled and PRN; will add duonebs. -IV solu-medrol scheduled -Ceftriaxone, azithromycin scheduled for COPD exacerbation organism coverage -Likely will need resumption/initiation of daily control inhalers of ICS/LABA/LAMA class CKD -Cr baseline appears to be ~1.5. At 1.59 today - -Monitor Mitral valve replacement PAF Dual-chamber pacemaker placement -Currently in a junctional rhythm upon admission -On Apixiban 5mg -On amiodarone, well sustained with this regimen -Cardiology following/managing CAD s/p CABG (2007) and Stenting (most recent coronary stent in 01/2022) PAD s/p stenting in February and March of 2022 -can continue atorvastatin -Management per cardiology Diabetes Mellitus - controlled by diet at home per patient Hyperglycemia -SSI Dispo: Patient is improved thus far with current management. Will continue treatments and continue monitoring patient's oxygen needs/work of breathing and follow labs closely. DION SÁNCHEZ DO 05/13/22 0521: Past Unxvvni-Vucbgq-Ntgeqo Hx Family Medical History Completed stroke 19 FATHER Diabetes mellitus 19 FATHER 19 MOTHER Myocardial infarction 19 MOTHER Review of Systems Constitutional: see HPI Physical Exam Physical Exam General Appearance: No Apparent Distress, Chronically ill Assessment/Plan Admission Diagnosis resp failure Admission Status: Inpatient Order (span 2 midnights) Reason for Inpatient Admission: resp failure Supervisory-Addendum Brief Verification & Attestation Participated in pt care: history, MDM, physical Personally performed: exam, history, MDM, supervision of care Care discussed with: Medical Student Procedures: n/a Results interpretation: Verified all documentation Verification and Attestation of Medical Student E/M Service A medical student performed and documented this service in my presence. I reviewed and verified all information documented by the medical student and made modifications to such information, when appropriate. I personally performed the physical exam and medical decision making. Dion Sánchez, May 13, 2022,05:21 PK SANDRA May 12, 2022 14:43 DION SÁNCHEZ DO May 13, 2022 05:21
[2022-05-12] MEDS ORDERED: CLOP75TA28 PO (15:40)
[2022-05-12] MEDS ORDERED: FLUT16SP22 NSEACH (15:40)
[2022-05-12] MEDS: FUROSEMIDE 40 MG/4 ML INJ (LASIX) IVP SCH (15:44)
[2022-05-12 15:46] VITALS: BP 164/72
[2022-05-12 19:35] VITALS: BP 161/68
[2022-05-12] MEDS ORDERED: eZETimibe 10 MG (ZETIA) TABLET PO SCH ×2 (21:00)
[2022-05-12] MEDS ORDERED: ALPRAZolam 1 MG (XANAX) TAB ONE (21:48)
[2022-05-12] MEDS: ALPRAZolam 1 MG (XANAX) TAB PO PRN (21:48)
[2022-05-12] MEDS ORDERED: cefTRIAXone 1 GM PRE-MIX 50 ML IV SCH (22:00)
[2022-05-12] MEDS ORDERED: lisINopril 5 MG (PRINIVIL) TABLET PO SCH (22:30)
[2022-05-12 23:04] VITALS: BP 135/63
[2022-05-13] MEDS: RT-ALBUTEROL HFA 8.5 GM INHALER IH SCH ×2 (02:43→07:43)
[2022-05-13 03:55] VITALS: BP 124/57
[2022-05-13 06:15] LABS: BASOPHILS % (AUTO) 0 % (0-10); EOSINOPHILS % (AUTO) 0 % (0-10); HEMATOCRIT 34 % (40-54); HEMOGLOBIN 11.5 g/dL (13.3-17.7); LYMPHOCYTES # (AUTO) 1.8 10^3/uL (1.0-4.0); LYMPHOCYTES % (AUTO) 13 % (12-44); MEAN CORPUSCULAR HEMOGLOBIN 32 pg (25-34); MEAN CORPUSCULAR HGB CONC 34 g/dL (32-36); MEAN CORPUSCULAR VOLUME 94 fL (80-99); MEAN PLATELET VOLUME 9.8 fL (9.0-12.2); MONOCYTES # (AUTO) 0.6 10^3/uL (0.0-1.0); MONOCYTES % (AUTO) 4 % (0-12); NEUTROPHILS # (AUTO) 11.7 10^3/uL (1.8-7.8); NEUTROPHILS % (AUTO) 82 % (42-75); PLATELET COUNT 100 10^3/uL (130-400); WHITE BLOOD COUNT 14.2 10^3/uL (4.3-11.0)
[2022-05-13 06:37] LABS: ALBUMIN 3.5 GM/DL (3.2-4.5)
[2022-05-13 06:38] LABS: POTASSIUM 4.8 MMOL/L (3.6-5.0)
[2022-05-13] MEDS: methylPREDNISolone 40 MG/ML (Solu-MEDROL) VIAL IV SCH ×2 (06:38→12:23)
[2022-05-13 06:39] LABS: CALCIUM 8.6 MG/DL (8.5-10.1); LYMPHOCYTES % (MANUAL) 11 %; MONOCYTES % (MANUAL) 2 %; NEUTROPHILS % (MANUAL) 87 %; RBC MORPH NORMAL
[2022-05-13 06:40] LABS: TOTAL PROTEIN 7.3 GM/DL (6.4-8.2)
[2022-05-13 06:42] LABS: BILIRUBIN,TOTAL 0.5 MG/DL (0.1-1.0)
[2022-05-13 06:43] LABS: CREATININE SERUM 1.52 MG/DL (0.60-1.30)
[2022-05-13 06:47] LABS: MAGNESIUM 2.2 MG/DL (1.6-2.4)
[2022-05-13] MEDS: FUROSEMIDE 40 MG/4 ML INJ (LASIX) IVP SCH (06:54)
[2022-05-13] MEDS ORDERED: PANTOPRAZOLE 40 MG (PROTONIX) TAB PO SCH (07:00)
[2022-05-13] MEDS ORDERED: KCL 20 MEQ TAB (K-DUR) PO SCH (07:00)
[2022-05-13 08:00] VITALS: BP 136/62
[2022-05-13] MEDS ORDERED: UMECLIDINIUM BROMIDE (INCRUSE ELLIPTA) 7'S IH SCH (08:00)
[2022-05-13] MEDS ORDERED: ISOSORBIDE MONONITRATE 30 MG (IMDUR) TAB PO SCH (09:00)
[2022-05-13] MEDS ORDERED: AMIODARONE 200 MG (CORDARONE) TAB PO SCH (09:00)
[2022-05-13] MEDS ORDERED: FLUTICASONE NASAL SPRAY (FLONASE) 16 GM BTL NS SCH (09:00)
[2022-05-13] MEDS ORDERED: CLOPIDOGREL 75 MG (PLAVIX) TABLET PO SCH (09:00)
[2022-05-13] MEDS ORDERED: FUROSEMIDE 40 MG (LASIX) TAB PO SCH (09:00)
--- NOTE | 2022-05-13 09:00 | Cardiology Progress Note ---
Subjective Date Seen by Provider: May 13, 2022 Time Seen by Provider: 08:20 Subjective/Events-last exam Patient is sitting up in bed, reports improvement of dyspnea and peripheral edema. Denies any chest pain Objective-Cardiology Exam Last Set of Vital Signs Vital Signs 05/11/22 05/13/22 05/13/22 21:02 03:55 08:00 Temp 36.0 Pulse 68 Resp 16 B/P (MAP) 136/62 (86) Pulse Ox 93 O2 Delivery Room Air O2 Flow Rate 2.00 2.00 FiO2 21 I&O Intake and Output 05/13/22 00:00 Intake Total 1790 ml Balance 1790 ml Intake Oral 1490 ml IV Total 300 ml # Voids 4 # Bowel Movements 1 Daily Weight Change No General: Alert, Oriented X3 HEENT: Atraumatic, PERRLA Lungs: Clear to Auscultation Heart: Regular Rate, Normal S1 Abdomen: Normal Bowel Sounds, Soft Extremities: No Edema Neuro: Normal Speech Psych/Mental Status: Mental Status NL, Mood NL Results Lab Laboratory Tests 05/12/22 11:20 05/13/22 05:45 A/P-Cardiology Admission Diagnosis AE COPD AE CHF CAD PVD Assessment/Plan AE COPD, management per medical services Acute on chronic diastolic CHF, most recent 2D Echo done December 2021 showing severe concentric hypertrophy, EF 50-55%. Mechanical prosthesis in the mitral valve position, peak gradient across prosthetic valve is 6mmHg, mitral valve area 2.29cm. Responding well to aggressive diuresis. Continue with diuretics and continue to monitor Coronary artery disease History of CABG x1 done in 2004 PTCA and stenting 2003 prior to the CABG Another stent done to the ramus intermedius in 2009 using Xience 2.5 x 23 mm April 2011 2 stents placed 3.25 x 12 mm to the LAD and 3.0 to the ramus intermedius Cardiac catheterization done in October 2011 with in-stent restenosis in the ramus intermedius had a balloon angioplasty with a 3 x 20 Quantum balloon, patent VIDAL to the distal LAD, patent stent to the proximal circumflex artery, large dominant artery. Small nondominant right Cardiac catheterization done in September 2015 with patent stent in the proximal LAD, 2 stents in the proximal ramus intermedius and stent to the proximal circumflex artery". Increasing vessel disease distally. VIDAL was patent the first OM has severe ostial stenosis very small arteries. Cardiac catheterization was done on February 11, 2022 which showed patent VIDAL to the LAD, patent stents in the proximal LAD ramus intermedius and circumflex artery with moderate small vessel disease distally, dominant circumflex artery, nondominant right coronary artery with mild to moderate disease. Normal left ventricular pressure, total occlusion of the right SFA reconstructed by collaterals above the popliteal artery Patient had mitral valve replacement and tricuspid valve repair done in December 2020 Peripheral arterial disease, has been having leg cramps on and off, reporting improvement. LILA was abnormal done on March 04, 2022 and it was 0.59 on the right and 0.49 on the left with abnormal TBI bilaterally around 0.35. I am planning to arrange for peripheral angiogram with possible angioplasty and stenting to the lower extremities. Patient underwent peripheral angiogram on March 20, 2022 with complex intervention and stenting of the right SFA using 3 overlapping stents Supera 6 x 150 distally followed by Supera 6 x 150 followed by absolute Pro 7 x 80 with excellent results. Patient underwent peripheral angiogram on April 17, 2022 with atherectomy and deployment of Supera 6 x 120 to the left SFA without any complication with excellent results. History of dual-chamber pacemaker implantation done by Dr. Hicks in January 2021. Last interrogation was done on March 05, 2022. Good sensing and capture activity, few episodes of nonsustained ventricular tachycardia. History of chest pain, reporting improvement, generalized fatigue and loss of energy Paroxysmal atrial fibrillation, had atrial fibrillation in 2020, has been maintained on amiodarone 200 mg daily and Eliquis 5 mg twice daily Mild bilateral carotid stenosis, underwent CTA head and neck in December 2020. Hypertension, elevated blood pressure today Reporting excellent blood pressure control at home. Hyperlipidemia, maintained on Lipitor 80 mg daily, evaluate lipid profile and me tabolic profile History of syncope, no further episodes were reported Tobaccoism, active smoker still smoking. Educated on smoking cessation History of borderline diabetes, controlled by diet History of intracranial bleed in the remote past secondary to trauma. AMY GUILLEN May 13, 2022 09:00
[2022-05-13] MEDS: ALPRAZolam 1 MG (XANAX) TAB PO PRN (09:03)
[2022-05-13] MEDS: APIXABAN 5 MG (ELIQUIS) TABLET PO SCH (09:04)
[2022-05-13] MEDS: SENNOSIDES 8.6 MG (SENOKOT) TAB PO SCH (09:04)
[2022-05-13] MEDS: NICOTINE PATCH REMOVAL TP SCH (09:05)
[2022-05-13] MEDS: NICOTINE 21 MG (NICODERM) PATCH TD SCH (09:05)
[2022-05-13] MEDS: DOCUSATE SODIUM 100 MG (COLACE) CAP PO SCH (09:05)
[2022-05-13] MEDS ORDERED: IPR14IN INH (09:27)
--- NOTE | 2022-05-13 11:25 | Progress Note ---
BOAZPK D 05/13/22 1125: Progress Note Subjective Hospital Course/HPI: This is a 71 y/o M with a PMH significant for CHF, COPD, CAD, PAD, every-day smoking, and DM who presented to the ED yesterday after increasing SOB with exertion and ~21 lb weight gain since this past (5 days ago). The patient reports that he is always short of breath at baseline despite having inhalers at home that he uses. He says over the past several days he has noticed his SOB getting worse and yesterday he felt like going outside for a walk and as soon as he got outside he felt like he needed to sit down. After this he attempted to go to the restroom back inside and said he was so SOB he was afraid he wasn't going to make it and decided he needed to go to the hospital. He says he attempted to use his rescue inhaler at home but it did not help. He uses a Umeclidinium/Vilanterol inhaler and albuterol inhaler PRN per med rec but he is unsure which one he tried.He reports he has a "smokers cough" at baseline and it has not increased. He says he has had increased sputum production which is clear to green. Patient was admitted to med-surg for acute COPD/CHF exacerbation. Cardiology was consulted and managed patient's diuresis and CHF treatment while medicine managed the COPD perpsective. Over the course of his first hospital day he had ~1500 ml out in urine with aggressive diuresis and with this he began to feel significantly less short of breath. On hospital day 2 he said he was nearly back to baseline and desired strongly to go home and thus was DC'd as he was stable at this time. Interval/Progress HD#2: Pt reports feeling better. He is laying down in bed at this time. He notes that he has not been able to lay flat as he is for a long time at home and was able to sleep much better. He is voiding without issue, having BMs, and eating/drinking without issue. No N/V, no CP/palpitations/SOB reported this AM. He is on 2L [place] overnight and says he wishes he had oxygen at home because he thinks it's really helped. Objective: Vital Signs Date Time Temp Pulse Resp B/P (MAP) Pulse Ox O2 Delivery O2 Flow Rate FiO2 05/13/22 09:00 Room Air 05/13/22 08:00 36.0 68 16 136/62 (86) 93 Room Air 05/13/22 07:45 96 Room Air 05/13/22 07:00 62 05/13/22 03:55 36.1 65 18 124/57 (79) 93 Nasal Cannula 2.00 2.00 05/13/22 02:44 Nasal Cannula 2.00 05/13/22 01:02 70 05/12/22 23:04 36.5 62 18 135/63 (87) 94 Nasal Cannula 2.00 05/12/22 21:05 Room Air 05/12/22 19:40 Room Air 05/12/22 19:35 36.5 65 20 161/68 (99) 95 Room Air 05/12/22 19:15 61 05/12/22 15:46 36.6 68 20 164/72 (102) 97 Nasal Cannula 2.00 05/12/22 14:25 96 Room Air 05/12/22 13:00 64 05/12/22 11:57 81 05/12/22 11:28 36.4 73 18 149/82 (104) 93 Nasal Cannula 1.00 I & O 05/13/22 07:00 Intake Total 2290 ml Balance 2290 ml Physical Exam: General Appearance: NAD, normal appearance, obese HEENT: PERRL/EOMI, Pharynx Normal Neck: Full Range of Motion, Non Tender, Supple Respiratory: Clear today without wheezing/crackles. Cardiovascular: Regular Rate, Rhythm, No Edema, holosystolic murmur over mitral area grade II/. Gastrointestinal: Non Tender, Soft Back: Normal Inspection Extremity: Non Tender, No Calf Tenderness, No Pedal Edema Neurologic/Psychiatric: Alert, Oriented x3 Skin: Normal Color, Warm/Dry Lymphatic: No Adenopathy Laboratory Tests 05/11/22 20:16 05/12/22 05:53 05/12/22 11:20 05/13/22 05:45 Laboratory Tests Test 05/12/22 09:00 Blood Gas Puncture Site RR Blood Gas Patient Temperature 37 Arterial Blood pH 7.32 Arterial Blood Partial Pressure CO2 40 MMHG Arterial Blood Partial Pressure O2 69 MMHG Arterial Blood HCO3 20 MMOL/L Arterial Blood Total CO2 21.2 MMOL/L Arterial Blood Oxygen Saturation 94 % Arterial Blood Base Excess -5.1 MMOL/L Archie Test YES-POS Blood Gas Ventilator Setting NO Blood Gas Inspired Oxygen RA Assessment and Plan Assessment: This is a 71 y/o male who presented with increased SOB and admitted for COPD/CHF exacerbation now HD#2. AHRF SOB 2/2 Acute COPD exacerbation and CHF exacerbation Metabolic acidosis, respiratory acidosis -Cardiology consulted and managing CHF side given extensive cardiac history; appreciate recs -Echo in 01/13 with EF 50-55% with diastolic dysfunction/concentric hypertrophy -CXR c/w pulmonary edema; will get repeat CXR in AM to evaluate status AB.32/40/69/20 - Mild HAGMA; possibly uremia vs lactic acidosis given hypoxia (lactic acid not checked on admit) -Anion Gap 11 -Delta Gap of 1 -Expected Bicarb: 23 -underlying secondary metabolic acidosis - likely 2/2 CKD -Expected CO2: 28-32 -Respiratory acidosis present -Lasix BID - pt responding well to diuresis thus far -Albuterol scheduled and PRN; will add duonebs. -IV solu-medrol scheduled -Ceftriaxone, azithromycin scheduled for COPD exacerbation organism coverage -Likely will need resumption/initiation of daily control inhalers of ICS/LABA/LAMA class CKD -Cr baseline appears to be ~1.5. At 1.52 today -Monitor Mitral valve replacement PAF Dual-chamber pacemaker placement -Currently in a junctional rhythm upon admission -On Apixiban 5mg -On amiodarone, well sustained with this regimen -Cardiology following/managing CAD s/p CABG (2007) and Stenting (most recent coronary stent in 01/2022) PAD s/p stenting in February and March of 2022 -can continue atorvastatin -Management per cardiology Diabetes Mellitus - controlled by diet at home per patient Hyperglycemia -SSI Dispo: Patient stabilized. Adamant for DC. Can DC home with close FU and would recommend re-evaluation for control inhaler use at home for COPD as patient would likely benefit from more than one daily Anora treatment. DION SÁNCHEZ DO 05/14/22 0456: Supervisory-Addendum Brief Verification & Attestation Participated in pt care: history, MDM, physical Personally performed: exam, history, MDM, supervision of care Care discussed with: Medical Student Procedures: n/a Results interpretation: Verified all documentation Verification and Attestation of Medical Student E/M Service A medical student performed and documented this service in my presence. I reviewed and verified all information documented by the medical student and made modifications to such information, when appropriate. I personally performed the physical exam and medical decision making. Dion Sánchez, May 14, 2022,04:56 PK SANDRA May 13, 2022 11:25 DION SÁNCHEZ DO May 14, 2022 04:56
[2022-05-13] MEDS ORDERED: PRED10TA22 PO (11:27)
[2022-05-13] MEDS ORDERED: CEFD300C3 PO (11:27)
--- NOTE | 2022-05-13 11:27 | Discharge Summary ---
Discharge Summary Hospital Course Was the Problem List Reviewed?: Yes Problems/Dx: (1) Pneumonia Status: Acute Qualifiers: Qualified Codes: J18.9 - Pneumonia, unspecified organism (2) COPD exacerbation Status: Acute Hospital Course Date of Admission: May 12, 2022 at 07:29 Admission Diagnosis : Family Physician/Provider: Leighton Barnhart DO Date of Discharge: 05/13/22 Discharge Diagnosis: [ ] Hospital Course: Hospital Course/HPI: This is a 71 y/o M with a PMH significant for CHF, COPD, CAD, PAD, every-day smoking, and DM who presented to the ED yesterday after increasing SOB with exertion and ~21 lb weight gain since this past (5 days ago). The patient reports that he is always short of breath at baseline despite having inhalers at home that he uses. He says over the past several days he has noticed his SOB getting worse and yesterday he felt like going outside for a walk and as soon as he got outside he felt like he needed to sit down. After this he attempted to go to the restroom back inside and said he was so SOB he was afraid he wasn't going to make it and decided he needed to go to the hospital. He says he attempted to use his rescue inhaler at home but it did not help. He uses a Umeclidinium/Vilanterol inhaler and albuterol inhaler PRN per med rec but he is unsure which one he tried.He reports he has a "smokers cough" at baseline and it has not increased. He says he has had increased sputum production which is clear to green. Patient was admitted to med-surg for acute COPD/CHF exacerbation. Cardiology was consulted and managed patient's diuresis and CHF treatment while medicine managed the COPD perpsective. Over the course of his first hospital day he had ~1500 ml out in urine with aggressive diuresis and with this he began to feel significantly less short of breath. On hospital day 2 he said he was nearly back to baseline and desired strongly to go home and thus was DC'd as he was stable at this time. Labs and Pending Lab Test: Laboratory Tests 05/13/22 05:45: White Blood Count 14.2H, Red Blood Count 3.60L, Hemoglobin 11.5L, Hematocrit 34L , Mean Corpuscular Volume 94, Mean Corpuscular Hemoglobin 32, Mean Corpuscular Hemoglobin Concent 34, Red Cell Distribution Width 14.6H, Platelet Count 100L, Mean Platelet Volume 9.8, Immature Granulocyte % (Auto) 1, Neutrophils (%) (Auto) 82H, Lymphocytes (%) (Auto) 13, Monocytes (%) (Auto) 4, Eosinophils (%) (Auto) 0, Basophils (%) (Auto) 0, Neutrophils # (Auto) 11.7H, Lymphocytes # (Auto) 1.8, Monocytes # (Auto) 0.6, Eosinophils # (Auto) 0.0, Basophils # (Auto) 0.0, Immature Granulocyte # (Auto) 0.1, Neutrophils % (Manual) 87, Lymphocytes % (Manual) 11, Monocytes % (Manual) 2, Blood Morphology Comment NORMAL, Sodium Level 134L, Potassium Level 4.8, Chloride Level 102, Carbon Dioxide Level 22, Anion Gap 10, Blood Urea Nitrogen 30H, Creatinine 1.52H, Estimat Glomerular Filtration Rate 49, BUN/Creatinine Ratio 20, Glucose Level 279H, Calcium Level 8.6, Corrected Calcium 9.0, Magnesium Level 2.2, Total Bilirubin 0.5, Aspartate Amino Transf (AST/SGOT) 12, Alanine Aminotransferase (ALT/SGPT) 18, Alkaline Phosphatase 89, Total Protein 7.3, Albumin 3.5 Home Meds Active Reported Atrovent Hfa (Ipratropium [place]) 17 Mcg/Actuation Aers 2 Puff INH QID Clopidogrel (Clopidogrel Bisulfate) 75 Mg Tablet 75 Mg PO DAILY Fluticasone Propionate 50 Mcg/Actuation [place].susp 1-2 [place] NSEACH DAILY Isosorbide Mononitrate ER (Isosorbide Mononitrate) 30 Mg Tab.er.24h 30 Mg PO DAILY Potassium Chloride 20 Meq Tablet.er 20 Meq PO DAILY Ezetimibe 10 Mg Tablet 10 Mg PO HS Eliquis (Apixaban) 5 Mg Tablet 5 Mg PO BID Amiodarone HCl 200 Mg Tablet 200 Mg PO DAILY Lisinopril 2.5 Mg Tablet 2.5 Mg PO HS Pantoprazole Sodium 40 Mg Tablet.dr 40 Mg PO DAILY Anoro Ellipta 62.5-25 Mcg INH (Umeclidinium Brm/Vilanterol Tr) 62.5 Mcg-25 Mcg/Actuation Blst.w.dev 1 Each IH DAILY Furosemide 40 Mg Tablet 40 Mg PO DAILY Atorvastatin Calcium 80 Mg Tablet 80 Mg PO HS Ventolin Hfa (Albuterol Sulfate) 90 Mcg Hfa.aer.ad 2 Puff INH Q4H PRN Alprazolam 1 Mg Tablet 1 Mg PO BID PRN Escitalopram Oxalate 10 Mg Tablet 10 Mg PO HS Assessment/Pt Instructions PCP 1 week Discharge Planning: <30 minutes discharge planning Discharge Instructions Discharge Diet: No Restrictions Discharge Physical Examination Vital Signs Vital Signs Date Time Temp Pulse Resp B/P (MAP) Pulse Ox O2 Delivery O2 Flow Rate FiO2 05/13/22 09:00 Room Air 05/13/22 08:00 36.0 68 16 136/62 (86) 93 05/13/22 03:55 2.00 2.00 05/11/22 21:02 21 General Appearance: No Apparent Distress, WD/WN, Chronically ill Respiratory: Lungs Clear, Normal Breath Sounds Cardiovascular: Regular Rate, Rhythm Neurologic/Psychiatric: Alert, Oriented x3, No Motor/Sensory Deficits, Normal Mood/Affect Allergies: Coded Allergies: morphine (Unverified Adverse Reaction, Unknown, "MAKES ME CRAZY", 09/04/13) Discharge Summary Date of Admission May 12, 2022 at 07:29 Date of Discharge Discharge Date: May 13, 2022 Admission Diagnosis resp failure DION SÁNCHEZ DO May 13, 2022 11:27
[2022-05-13 12:00] VITALS: BP 136/60
[2022-05-13 12:36] VITALS: BP 136/60
[2022-05-13] MEDS ORDERED: AZITHROMYCIN 250 MG TAB (ZITHROMAX) PO SCH (21:00)
== END 2022-05-13 12:36 | disposition home or self-care (01) | DRG 291 ==
LOC: EDUNIT# 19:48 → ER 19:50 → 4TH 05-12 07:29 → OBSVTOIN 05-12 07:29
PROVIDERS: ADMIT Internal Medicine; ATTEND Internal Medicine
DX: I13.0 Hypertensive heart and chronic kidney disease with heart failure and stage 1 through stage 4 chronic kidney disease, or unspecified chronic kidney disease (principal); I50.33 Acute on chronic diastolic (congestive) heart failure; J96.01 Acute respiratory failure with hypoxia; J18.9 Pneumonia, unspecified organism; E87.4 Mixed disorder of acid-base balance; J44.1 Chronic obstructive pulmonary disease with (acute) exacerbation; J44.0 Chronic obstructive pulmonary disease with (acute) lower respiratory infection; F17.210 Nicotine dependence, cigarettes, uncomplicated; E11.65 Type 2 diabetes mellitus with hyperglycemia; I48.0 Paroxysmal atrial fibrillation; I25.10 Atherosclerotic heart disease of native coronary artery without angina pectoris; E11.51 Type 2 diabetes mellitus with diabetic peripheral angiopathy without gangrene; E78.5 Hyperlipidemia, unspecified; Z66 Do not resuscitate; E11.22 Type 2 diabetes mellitus with diabetic chronic kidney disease; N18.9 Chronic kidney disease, unspecified; I25.2 Old myocardial infarction; Z79.52 Long term (current) use of systemic steroids; Z85.46 Personal history of malignant neoplasm of prostate; Z90.79 Acquired absence of other genital organ(s); Z95.0 Presence of cardiac pacemaker; Z95.1 Presence of aortocoronary bypass graft; Z95.5 Presence of coronary angioplasty implant and graft; Z95.2 Presence of prosthetic heart valve; Z79.01 Long term (current) use of anticoagulants; Z71.6 Tobacco abuse counseling; Z79.899 Other long term (current) drug therapy; Z95.820 Peripheral vascular angioplasty status with implants and grafts
CPT/HCPCS: 36415; 71045; 80053; 80061; 82805; 83735; 83874; 83880; 84484; 85007; 85025; 85027; 85610; 85730; 93005; 93041; 94640; 96365; 96375

== ENCOUNTER 2022-11-12 20:00 | Emergency (ER) | payer MEDICARE, MEDICAID ==
[~2022-11-12] VITALS: Ht 175 cm; Wt 94.0 kg
[~2022-11-12 20:00] MED LIST changes: +CEFD300C3 PO; +FLUT16SP22 NSEACH; +IPR14IN INH; +POTA-330 PO; -POTA-51 PO; +PRED10TA22 PO
[2022-11-12] MEDS ORDERED: dexAMETHasone ORAL SOLUTION 1 MG/ML 5 ML UDC PO STA (20:10)
--- NOTE | 2022-11-12 20:14 | ED Cough/URI ---
General Chief Complaint: Cough/Cold/Flu Symptoms Stated Complaint: SOB, ACHING FULL BODY, Source: patient Exam Limitations: no limitations History of Present Illness Date Seen by Provider: Nov 12, 2022 Time Seen by Provider: 20:04 Initial Comments 71yoM with PMH of COPD with continued smoking coming in due to productive cough, SOB, and body aches. The body aches started a couple days ago. He did receive a flu shot yesterday, he says the symptoms were occurring before that. He has not had any medications including no Tylenol today. He did use his breathing treatment which did help earlier. Otherwise denies any chest pain, fever, nausea, vomiting, diarrhea, rash, or any other concerns. Allergies and Home Medications Allergies Coded Allergies: morphine (Unverified Adverse Reaction, Unknown, "MAKES ME CRAZY", 09/04/13) Patient Home Medication List Home Medication List Reviewed: Yes Albuterol Sulfate (Ventolin Hfa) 90 Mcg Hfa.aer.ad, 2 PUFF INH Q4H PRN for SHORTNESS OF BREATH, (Reported) Entered as Reported by: ABI BANKS on 11/05/16 0857 Alprazolam (Alprazolam) 1 Mg Tablet, 1 MG PO BID PRN for ANXIETY, (Reported) Entered as Reported by: ABI BANKS on 11/05/16 0857 Amiodarone HCl (Amiodarone HCl) 200 Mg Tablet, 200 MG PO DAILY, (Reported) Entered as Reported by: HUBERT LI on 02/11/22 0810 Apixaban (Eliquis) 5 Mg Tablet, 5 MG PO BID, (Reported) Entered as Reported by: HUBERT LI on 02/11/22 0810 Atorvastatin Calcium (Atorvastatin Calcium) 80 Mg Tablet, 80 MG PO HS, (Reported) Entered as Reported by: HUBERT LI on 02/11/22 0810 Cefdinir (Cefdinir) 300 Mg Capsule, 300 MG PO BID Prescribed by: DION SÁNCHEZ on 05/13/22 1127 Clopidogrel Bisulfate (Clopidogrel) 75 Mg Tablet, 75 MG PO DAILY, (Reported) Entered as Reported by: LCUAS SAMANIEGO on 05/12/22 1540 Escitalopram Oxalate (Escitalopram Oxalate) 10 Mg Tablet, 10 MG PO HS, (Reported) Entered as Reported by: ABI BANKS on 09/26/15 1321 Ezetimibe (Ezetimibe) 10 Mg Tablet, 10 MG PO HS, (Reported) Entered as Reported by: HUBERT LI on 02/11/22 08 Fluticasone Propionate (Fluticasone Propionate) 50 Mcg/Actuation [place].susp, 1-2 [place] NSEACH DAILY, (Reported) Entered as Reported by: LUCAS SAMANIEGO on 05/12/22 1540 Furosemide (Furosemide) 40 Mg Tablet, 40 MG PO DAILY, (Reported) Entered as Reported by: HUBERT LI on 02/11/22 08 Ipratropium [place] (Atrovent Hfa) 17 Mcg/Actuation Aers, 2 PUFF INH QID, (Reported) Entered as Reported by: LUCAS SAMANIEGO on 05/13/22 0927 Isosorbide Mononitrate (Isosorbide Mononitrate ER) 30 Mg Tab.er.24h, 30 MG PO DAILY, (Reported) Entered as Reported by: ADELA LEDESMA on 03/20/22 0837 Lisinopril (Lisinopril) 2.5 Mg Tablet, 2.5 MG PO HS, (Reported) Entered as Reported by: HUBERT LI on 02/11/22 08 Pantoprazole Sodium (Pantoprazole Sodium) 40 Mg Tablet.dr, 40 MG PO DAILY, (Reported) Entered as Reported by: HUBERT LI on 02/11/22 08 Potassium Chloride (Potassium Chloride) 20 Meq Tablet.er, 20 MEQ PO DAILY, (Reported) Entered as Reported by: HUBERT LI on 02/11/22 08 Prednisone (Prednisone) 10 Mg Tab.ds.pk, 10 MG PO DAILY Prescribed by: DION SÁNCHEZ on 05/13/22 1127 Umeclidinium Brm/Vilanterol Tr (Anoro Ellipta 62.5-25 Mcg INH) 62.5 Mcg-25 Mcg/Actuation Blst.w.dev, 1 EACH IH DAILY, (Reported) Entered as Reported by: HUBERT LI on 02/11/22 08 Review of Systems Review of Systems Constitutional: No fever; malaise EENTM: nose congestion Respiratory: cough, short of breath, wheezing Cardiovascular: no symptoms reported Gastrointestinal: no symptoms reported Genitourinary: no symptoms reported Musculoskeletal: no symptoms reported Skin: no symptoms reported Psychiatric/Neurological: No Symptoms Reported Hematologic/Lymphatic: No Symptoms Reported Immunological/Allergic: no symptoms reported Past Isubfcq-Qhswoj-Xyzmjr Hx Patient Social History Tobacco Use?: Yes Substance use?: No Alcohol Use?: No Pt feels they are or have been: No Immunizations Up To Date Tetanus Booster (TDap): Less than 5yrs PED Vaccines UTD: Yes Seasonal Allergies Seasonal Allergies: No Past Medical History Surgery/Hospitalization HX: cabg, ppm, l knee anxiety, copd, chf, htn, hld, niddm, Surgeries: Yes (CARDIAC SX, PINS IN R. WRIST, KNEE SURGERGY) CABG, Coronary Stent, Orthopedic, Pacemaker, Prostatectomy, Tonsillectomy, Valve Replacement Respiratory: Yes COPD Currently Using CPAP: No Currently Using BIPAP: No Cardiac: Yes (CATHS, BYPASS, STENTS, BALLOONS, LAST MS--NON-STEMI 09/2015) Atrial Fibrillation, Coronary Artery Disease, Valvular Heart Disease Neurological: Yes (hx of brain bleed) Traumatic Brain Injury Reproductive Disorders: No Sexually Transmitted Disease: No HIV/AIDS: No Genitourinary: Yes Benign Prostatic Hyperpl Gastrointestinal: Yes Gastroesophageal Reflux Musculoskeletal: Yes Chronic Back Pain Endocrine: Yes ("DIET CONROLLED" ) Diabetes, Non-Insulin dep HEENT: No Hearing Impairment: Denies Cancer: No Psychosocial: Yes Anxiety, Depression Integumentary: No Blood Disorders: No Adverse Reaction/Blood Tranf: No Family Medical History Completed stroke 19 FATHER Diabetes mellitus 19 FATHER 19 MOTHER Myocardial infarction 19 MOTHER No Pertinent Family Hx Physical Exam Vital Signs - First Documented Capillary Refill : Height: 5'9.00" Weight: 204lbs. 3.0oz. 92.204424pr; 32.65 BMI Method:Stated General Appearance: WD/WN, no apparent distress Eyes: Bilateral Eye Normal Inspection HEENT: PERRL/EOMI, normal ENT inspection, pharynx normal Neck: non-tender, full range of motion, supple, normal inspection Respiratory: chest non-tender, no respiratory distress, no accessory muscle use, wheezing Cardiovascular: regular rate, rhythm, no edema Gastrointestinal: normal bowel sounds, non tender, soft; No distended, No guarding, No rebound Extremities: normal range of motion, non-tender, normal inspection, no pedal edema, no calf tenderness Neurologic/Psychiatric: no motor/sensory deficits, alert, normal mood/affect Skin: normal color, warm/dry Progress/Results/Core Measures Suspected Sepsis SIRS Temperature: Pulse: Respiratory Rate: Blood Pressure / Mean: Results/Orders Lab Results Laboratory Tests Test 11/12/22 20:10 Range/Units Influenza Type A (RT-PCR) Not Detected Not Detecte Influenza Type B (RT-PCR) Not Detected Not Detecte SARS-CoV-2 RNA (RT-PCR) Not Detected Not Detecte My Orders Orders - ESTUARDO YI MD Ekg Tracing (11/12/22 20:10) Influenza A And B By Pcr (11/12/22 20:10) Chest 1 View, Ap/Pa Only (11/12/22 20:10) Covid 19 Inhouse Test (11/12/22 20:10) Ipratropium/Albuterol Inh Soln (Ipratrop (11/12/22 20:15) Dexamethasone Oral Soln (Ed) (Dexamethas (11/12/22 20:10) Doxycycline Hyclate Tablet (Doxycycline (11/12/22 20:10) Ceftriaxone Iv/Im (Ceftriaxone Iv/Im) (11/12/22 20:15) Lidocaine 1% Inj 20 Ml (Xylocaine 1% Inj (11/12/22 20:15) Acetaminophen Tablet (Acetaminophen Ta (11/12/22 20:15) Lidocaine 1% Inj 10 Ml (Xylocaine 1% Inj (11/12/22 20:17) Medications Given in ED Current Medications Medications Dose Ordered Sig/Héctor Route Start Time Stop Time Status Last Admin Dose Admin Acetaminophen 1,000 mg ONCE ONCE PO 11/12/22 20:15 11/12/22 20:16 DC 11/12/22 20:21 1,000 MG Albuterol/ Ipratropium 3 ml ONCE ONCE INH 11/12/22 20:15 11/12/22 20:16 DC 11/12/22 20:22 3 ML Ceftriaxone Sodium 1,000 mg ONCE ONCE IM 11/12/22 20:15 11/12/22 20:16 DC 11/12/22 20:21 1,000 MG Lidocaine HCl 10 ml STK-MED ONCE .ROUTE 11/12/22 20:17 11/12/22 20:20 DC 11/12/22 20:21 2.1 ML Vital Signs/I&O 11/12/22 11/12/22 11/12/22 11/12/22 20:04 20:04 20:21 20:25 Temp 36.9 36.9 Pulse 90 Resp 20 B/P (MAP) 154/95 (114) Pulse Ox 92 91 O2 Delivery Room Air Room Air Room Air Capillary Refill : Progress Note : Progress Note 71-year-old male with above history coming in due to body aches, cough, congestion, shortness of breath with wheezing. ABCs were intact and vitals were stable on presentation. Physical exam with wheezing in all lung leung with his history of COPD. Given his productive cough and the COPD, likely a COPD exacerbation versus flulike illness. He was given a DuoNeb, steroids, antibiotics. Chest x-ray ordered and interpreted by me showing no obvious pneumonia or pneumothorax. Flu and COVID test sent were negative. Patient overall well-appearing on room air and I believe stable for discharge with outpatient follow-up. He was sent home with strict return precautions. ECG Initial ECG Impression Date: Nov 12, 2022 Initial ECG Impression Time: 20: Initial ECG Rate: 85 Initial ECG Rhythm: Normal Sinus Comment narrow QRS, normal axis, no significant ST changes or TWI Diagnostic Imaging Diagonstic Imaging: Xray (chest) Comments NAME: KARINA BRASHER MED REC#: [id number] PT STATUS: REG ER : 1950 PHYSICIAN: ESTUARDO YI MD ADMIT DATE: 11/12/22/ER Draft Date of Exam:11/12/22 CHEST 1 VIEW, AP/PA ONLY EXAMINATION: Chest 1 view. HISTORY: Shortness of breath. COMPARISON: 05/12/2022. FINDINGS: There is cardiomegaly with prominence of the central pulmonary vasculature. Stable left pectoral pacemaker. No large pleural effusion or pneumothorax. IMPRESSION: Cardiomegaly with mild congestion. Dictated on workstation # [id number] Dict: 11/12/222030 Trans: 11/12/222032 [facility] [id number] Interpreted by: ISHANA GARRISON DO Electronically signed by: Departure Impression Primary Impression: COPD exacerbation Additional Impression: Flu-like symptoms Disposition: 01 HOME, SELF-CARE Condition: Stable Departure-Patient Inst. Decision time for Depature: 21:00 Referrals: LUCAS WILSON DO (PCP/Family) Primary Care Physician Patient Instructions: Exacerbation of COPD (DC) Add. Discharge Instructions: Your symptoms sound consistent with a flulike illness. Your flu and COVID test fortunately were negative. It is likely one of the many other viruses that are causing your symptoms. Take Tylenol for fever or body aches. Antibiotics and steroids will be sent to your pharmacy due to your COPD with exacerbation due to this illness. Use your nebulizer at home every 4 hours as needed for shortness of breath. Scripts Doxycycline Hyclate (Doxycycline Hyclate) 100 Mg Tablet 100 MG PO BID for 5 Days, #10 TAB 0 Refills Prov: ESTUARDO YI MD 11/12/22 Methylprednisolone (Methylprednisolone Dose Pack) 4 Mg Tab.ds.pk 4 MG PO UD for 6 Days, #21 PKG PER DOSE PACK INSTRUCTIONS Prov: ESTUARDO YI MD 11/12/22 Work/School Note: Work Release Form Date Seen in the Emergency Department: Nov 12, 2022 Return to Work: Nov 14, 2022 Restrictions: No Restrictions ESTUARDO YI MD Nov 12, 2022 20:14
[2022-11-12] MEDS ORDERED: LIDOCAINE 1% INJ 20 ML VIAL INJ ONE (20:15)
[2022-11-12] MEDS ORDERED: ACETAMINOPHEN 500 MG TABLET PO ONE (20:15)
[2022-11-12] MEDS ORDERED: RT-Ipratropium/Albuterol NEB 3 ML VIAL INH ONE (20:15)
[2022-11-12] MEDS ORDERED: cefTRIAXone 1,000 MG VIAL IV/IM IM ONE (20:15)
[2022-11-12] MEDS ORDERED: LIDOCAINE 1% INJ 10 ML VIAL ONE (20:17)
--- NOTE | 2022-11-12 20:33 | Diagnostic Imaging Report ---
EXAMINATION: Chest 1 view. HISTORY: Shortness of breath. COMPARISON: 05/12/2022. FINDINGS: There is cardiomegaly with prominence of the central pulmonary vasculature. Stable left pectoral pacemaker. No large pleural effusion or pneumothorax. IMPRESSION: Cardiomegaly with mild congestion. Dictated by: Dictated on workstation # [id number]
[2022-11-12] MEDS ORDERED: METH4TAB10 PO (20:47)
[2022-11-12] MEDS ORDERED: DOXY100T2 PO (20:47)
[2022-11-12 20:50] VITALS: BP 141/89
== END 2022-11-12 20:51 | disposition home or self-care (01) ==
LOC: EDUNIT# 20:00 → ER 20:02
DX: J44.1 Chronic obstructive pulmonary disease with (acute) exacerbation (principal); F17.200 Nicotine dependence, unspecified, uncomplicated; Z20.822 Contact with and (suspected) exposure to COVID-19
CPT/HCPCS: 71045; 87636; 93005; 94640

== ENCOUNTER → 2022-12-01 | Outpatient (CLI) | payer MEDICARE, MEDICAID ==
[~2022-12-01] MED LIST changes: +DOXY100T2 PO; +METH4TAB10 PO
--- NOTE | 2022-12-01 14:15 | Diagnostic Imaging Report ---
EXAMINATION: Chest 2 view HISTORY: Pneumonia COMPARISON: 11/12/2022 FINDINGS: There are basilar interstitial opacities. There are prosthetic mitral and tricuspid valves. No pleural effusion or pneumothorax. Heart size is normal. Pacemaker is present. IMPRESSION: 1. Bibasilar interstitial opacities may represent edema. Dictated by: Dictated on workstation # [id number]
== END ==
LOC: RAD 11:16
PROVIDERS: ATTEND Physician Assistant
DX: J18.9 Pneumonia, unspecified organism (principal); R91.8 Other nonspecific abnormal finding of lung field
CPT/HCPCS: 71046

== ENCOUNTER → 2022-12-02 | Outpatient (CLI) | payer MEDICARE, MEDICAID ==
[2022-12-02 09:46] LABS: BASOPHILS % (AUTO) 1 % (0-10); EOSINOPHILS # (AUTO) 0.2 10^3/uL (0.0-0.3); EOSINOPHILS % (AUTO) 4 % (0-10); HEMATOCRIT 39 % (40-54); LYMPHOCYTES # (AUTO) 1.5 10^3/uL (1.0-4.0); LYMPHOCYTES % (AUTO) 25 % (12-44); MEAN CORPUSCULAR HEMOGLOBIN 31 pg (25-34); MEAN CORPUSCULAR HGB CONC 33 g/dL (32-36); MEAN CORPUSCULAR VOLUME 92 fL (80-99); MEAN PLATELET VOLUME 9.2 fL (9.0-12.2); MONOCYTES # (AUTO) 0.4 10^3/uL (0.0-1.0); MONOCYTES % (AUTO) 7 % (0-12); NEUTROPHILS # (AUTO) 3.9 10^3/uL (1.8-7.8); NEUTROPHILS % (AUTO) 64 % (42-75); PLATELET COUNT 171 10^3/uL (130-400)
[2022-12-02 10:05] LABS: ALBUMIN 3.3 GM/DL (3.2-4.5); POTASSIUM 3.8 MMOL/L (3.6-5.0)
[2022-12-02 10:06] LABS: CALCIUM 8.8 MG/DL (8.5-10.1)
[2022-12-02 10:07] LABS: TOTAL PROTEIN 7.6 GM/DL (6.4-8.2)
[2022-12-02 10:09] LABS: BILIRUBIN,TOTAL 0.6 MG/DL (0.1-1.0)
[2022-12-02 10:11] LABS: CREATININE SERUM 1.31 MG/DL (0.60-1.30)
[2022-12-02 10:22] LABS: AMPHETAMINE SCREEN, URINE NEGATIVE (NEGATIVE); BARBITURATE SCREEN URINE NEGATIVE (NEGATIVE); CANNABINOID SCREEN, URINE NEGATIVE (NEGATIVE); COCAINE SCREEN URINE NEGATIVE (NEGATIVE); METHADONE STAT NEGATIVE (NEGATIVE); OPIATE SCREEN URINE NEGATIVE (NEGATIVE); OXYCODONE STAT NEGATIVE (NEGATIVE); PROPOXYPHENE STAT NEGATIVE (NEGATIVE); TRICYCLIC ANTIDEPRESSANTS SCRE NEGATIVE (NEGATIVE)
== END ==
LOC: LAB 09:27
PROVIDERS: ATTEND Physician Assistant
DX: E11.9 Type 2 diabetes mellitus without complications (principal); I10 Essential (primary) hypertension; R97.20 Elevated prostate specific antigen [PSA]; E78.2 Mixed hyperlipidemia; J44.1 Chronic obstructive pulmonary disease with (acute) exacerbation; F41.9 Anxiety disorder, unspecified; Z51.81 Encounter for therapeutic drug level monitoring; Z85.46 Personal history of malignant neoplasm of prostate
CPT/HCPCS: 36415; 80053; 80061; 80306; 82043; 83036; 84153; 84443; 85025